=== PATIENT | male | born 1945 | race Caucasian/White ===

== ENCOUNTER 2016-06-20 11:07 | Emergency (ER) | payer MEDICARE ==
[2016-06-20 11:29] VITALS: BP 160/84
--- NOTE | 2016-06-20 11:33 | EDM.PDOC ---
ED HPI GENERAL MEDICAL PROBLEM - General Chief Complaint: General Stated Complaint: HYPERGLYCEMIA Time Seen by Provider: 06/20/16 11:23 Source of Information: Reports: Patient History Limitations: Reports: No limitations - History of Present Illness INITIAL COMMENTS - FREE TEXT/NARRATIVE: PT SENT TO ER FROM THE [facility] AND PRESENTS WITH BLOOD LAB VALUE OF GLUCOSE FOUND TO BE ELEVATED TO 480. PT STATES HE RAN OUT OF MEDICATION AND HAS NOT TAKEN IT IN 2 WEEKS. DENIES FEVER, CP, SOB, N/V/D, ABD PAIN, OR STEPHENSON. PT STATES HE FEELS FINE AND DOES NOT CHECK BG LEVEL DAILY. Onset: gradual Duration: Week(s): Severity: mild Improves with: Reports: None Worsens with: Reports: None Associated Symptoms: Reports: no other symptoms. Denies: chest pain, diaphoresis, fever/chills, headaches, nausea/vomiting, shortness of breath, syncope, weakness - Related Data Allergies Allergy/AdvReac Type Severity Reaction Status Date / Time No Known Drug Allergies Allergy Cannot Verified 06/20/16 11:26 Remember Home Meds: Home Meds Benazepril [Lotensin] 40 mg PO BEDTIME 06/20/16 [History] Simvastatin [Zocor] 20 mg PO BEDTIME 06/20/16 [History] amLODIPine [Norvasc] 10 mg PO DAILY 06/20/16 [History] glipiZIDE [Glipizide Xl] 20 mg PO DAILY 06/20/16 [History] metFORMIN [Glucophage] 1,000 mg PO BIDMEALS 06/20/16 [History] ED ROS GENERAL - Review of Systems Review Of Systems: ROS reveals no pertinent complaints other than HPI. Constitutional: Reports: no symptoms HEENT: Reports: No symptoms Respiratory: Reports: No Symptoms Cardiovascular: Reports: No symptoms Endocrine: Reports: no symptoms GI/Abdominal: Reports: No symptoms : Reports: no symptoms Musculoskeletal: Reports: no symptoms Skin: Reports: no symptoms Neurological: Reports: No Symptoms Psychiatric: Reports: No symptoms Hematologic/Lymphatic: Reports: no symptoms Immunologic: Reports: no symptoms ED EXAM, GENERAL - Physical Exam Exam: See Below Exam Limited By: No limitations General Appearance: alert, WD/WN, no apparent distress Eye Exam: bilateral eye: normal inspection Nose: normal inspection, normal mucosa, no blood Throat/Mouth: Normal inspection, Normal oropharynx, No airway compromise Head: atraumatic, normocephalic Neck: normal inspection, supple, non-tender Respiratory/Chest: no respiratory distress, lungs clear, normal breath sounds, no accessory muscle use, chest non-tender Cardiovascular: regular rate, rhythm, no murmur GI/Abdominal: normal bowel sounds, soft, non tender, no organomegaly, no distention, no abnormal bruit, no mass Back Exam: normal inspection, full range of motion. No: CVA tenderness (L), CVA tenderness (R) Extremities: normal inspection, no pedal edema Neurological: alert, oriented, normal cognition, no motor/sensory deficits Psychiatric: normal affect, normal mood Skin Exam: Warm, Dry, Intact, Normal color, No rash Lymphatic: no adenopathy Course - Vital Signs Last Recorded V/S: Last Vital Signs Temp 98.5 F 06/20/16 11:16 Pulse 101 H 06/20/16 11:16 Resp 18 06/20/16 11:16 BP 160/84 H 06/20/16 11:16 Pulse Ox 95 06/20/16 11:16 - Orders/Labs/Meds Orders: Active Orders 24 hr Category Date Time Status Blood Glucose Check, Bedside [RC] ONETIME Care 06/20/16 13:15 Active Sodium Chloride 0.9% [Syrex Flush] Med 06/20/16 11:44 Active 5 ml FLUSH Q8HR PRN Peripheral IV Insertion Adult [OM.PC] Routine Oth 06/20/16 11:44 Ordered Medication Orders Sodium Chloride (Syrex Flush) 5 ml FLUSH Q8HR PRN PRN Reason: Keep Vein Open Labs: Laboratory Tests 06/20/16 06/20/16 Range/Units 11:51 13:10 POC Glucose 370 H 307 H (74-106) mg/dl Meds: Medications Generic Name Dose Route Start Last Admin Trade Name Freq PRN Reason Stop Dose Admin Sodium Chloride 5 ml 06/20/16 11:44 Syrex Flush FLUSH Q8HR PRN Keep Vein Open Discontinued Medications Generic Name Dose Route Start Last Admin Trade Name Freq PRN Reason Stop Dose Admin Sodium Chloride 1,000 mls @ 999 mls/hr 06/20/16 11:44 06/20/16 12:15 Normal Saline IV 06/20/16 12:44 999 mls/hr .BOLUS ONE Administration Insulin Human Regular 6 unit 06/20/16 11:44 06/20/16 12:14 Novolin R SUBCUT 06/20/16 11:45 6 unit ONETIME ONE Administration Protocol - Re-Assessments/Exams Free Text/Narrative Re-Assessment/Exam: 06/20/16 13:21 PT AFEBRILE, NONTOXIC APPEARING, FEELS WELL, BG DECREASED. WILL RESTART CURRENT MEDICATIONS AND HAVE HIM F/U AT CLINIC SCHEDULED ON Saturday06/20/16 13:24 Departure - Departure Time of Disposition: 13:24 Disposition: Home, Self-Care 01 Condition: good Clinical Impression: Hyperglycemia Diabetes mellitus Qualifiers: Diabetes mellitus type: type 2 Diabetes mellitus complication status: without complication Instructions: Type 2 Diabetes Mellitus, Adult, Hyperglycemia, [id number] Forms: ED Department Discharge Additional Instructions: FOLLOW UP WITH PCP SCHEDULED ON SATURDAY - My Orders Last 24 Hours: My Active Orders 06/20/16 11:44 Sodium Chloride 0.9% [Syrex Flush] 5 ml FLUSH Q8HR PRN Peripheral IV Insertion Adult [OM.PC] Routine 06/20/16 13:15 Blood Glucose Check, Bedside [RC] ONETIME - Assessment/Plan Last 24 Hours: My Active Orders 06/20/16 11:44 Sodium Chloride 0.9% [Syrex Flush] 5 ml FLUSH Q8HR PRN Peripheral IV Insertion Adult [OM.PC] Routine 06/20/16 13:15 Blood Glucose Check, Bedside [RC] ONETIME Assessment:: HYPERGLYCEMIA Plan: WILL F/U WITH PCP SCHEDULED ON SATURDAY
[2016-06-20] MEDS ORDERED: Insulin Regular, Human 100 Units/ML 10 ML Vial SUBCUT ONE (11:44)
[2016-06-20] MEDS ORDERED: Sodium Chloride 0.9% 1,000 ML IV ONE (11:44)
[2016-06-20] MEDS ORDERED: Sodium Chloride 0.9% 5 ML Syringe FLUSH PRN (11:44)
== END 2016-06-20 13:45 | disposition home or self-care (01) ==
LOC: KA.ED 11:07
DX: E11.65 Type 2 diabetes mellitus with hyperglycemia (principal); Z79.84 Long term (current) use of oral hypoglycemic drugs; Z79.899 Other long term (current) drug therapy
CPT/HCPCS: 82962; 96360; 96372; 99283; J1817; J7030; 99284

== ENCOUNTER 2020-02-22 11:55 | Inpatient (IN) | payer MEDICARE, OTHER ==
[2020-02-22] MEDS ORDERED: Sodium Chloride 0.9% 1,000 ML ONE (12:42)
[2020-02-22] MEDS ORDERED: Sodium Chloride 0.9% 1,000 ML IV ONE ×3 (13:01→21:14)
[2020-02-22] MEDS ORDERED: 50% Dextrose in Water 50 ML Syringe IV PRN ×3 (13:03→23:29)
[2020-02-22] MEDS ORDERED: Glucagon,Human Recombinant 1 MG Vial IM PRN ×3 (13:03→23:29)
[2020-02-22] MEDS ORDERED: Insulin Aspart 100 Units/ML 3 ML Pen SUBCUT ONE ×2 (13:03→14:20)
[2020-02-22] MEDS ORDERED: Ondansetron 4 MG/2 ML SDV IVPUSH ONE (14:32)
[2020-02-22] MEDS ORDERED: Ondansetron 4 MG/2 ML SDV ONE (14:33)
--- NOTE | 2020-02-22 14:41 | EDM.PDOC ---
ED HPI GENERAL MEDICAL PROBLEM - General Chief Complaint: Gastrointestinal Problem Stated Complaint: WEAK; Time Seen by Provider: 02/22/20 13:50 Source of Information: Reports: Patient History Limitations: Reports: No Limitations - History of Present Illness INITIAL COMMENTS - FREE TEXT/NARRATIVE: Patient presents with nausea and vomiting for 5 days. He can't keep anything down and thinks it is from high glucose. He has had this in the past. He takes metformin and glipizide but hasn't had glipizide for nearly 3 weeks since he couldn't get it refilled. He has been very thirsty and urinating more than usual but can't keep water down. - Related Data Allergies Allergy/AdvReac Type Severity Reaction Status Date / Time No Known Drug Allergies Allergy Cannot Verified 02/22/20 12:19 Remember Home Meds: Home Meds Benazepril [Lotensin] 40 mg PO BEDTIME 06/20/16 [History] Simvastatin [Zocor] 20 mg PO BEDTIME 06/20/16 [History] amLODIPine [Norvasc] 10 mg PO DAILY 06/20/16 [History] glipiZIDE [Glipizide Xl] 20 mg PO DAILY 06/20/16 [History] metFORMIN [Glucophage] 1,000 mg PO BIDMEALS 06/20/16 [History] Aspirin [Aspirin EC] 81 mg PO DAILY 02/22/20 [History] Past Medical History HEENT History: Reports: None Cardiovascular History: Reports: High Cholesterol, Hypertension Respiratory History: Reports: None Gastrointestinal History: Reports: Colon Polyp Musculoskeletal History: Reports: Fracture Neurological History: Reports: None Endocrine/Metabolic History: Reports: Diabetes, Type II, Obesity/BMI 30+ - Infectious Disease History Infectious Disease History: Reports: Chicken Pox, Mumps - Past Surgical History HEENT Surgical History: Reports: None Cardiovascular Surgical History: Reports: None Respiratory Surgical History: Reports: None GI Surgical History: Reports: Appendectomy, Colonoscopy, Polypectomy, Other (See Below) Other GI Surgeries/Procedures: scrotal hernia Endocrine Surgical History: Reports: None Neurological Surgical History: Reports: None Musculoskeletal Surgical History: Reports: None Dermatological Surgical History: Reports: None Social & Family History - Family History Family Medical History: No Pertinent Family History - Tobacco Use Tobacco Use Status *Q: Current Every Day Tobacco User Years of Tobacco use: 30 Packs/Tins Daily: 1 Used Tobacco, but Quit: No Second Hand Smoke Exposure: No - Caffeine Use Caffeine Use: Reports: Coffee - Recreational Drug Use Recreational Drug Use: No ED ROS GENERAL - Review of Systems Review Of Systems: See Below Constitutional: Reports: Weakness. Denies: Fever, Decreased Appetite HEENT: Reports: No Symptoms Respiratory: Denies: Shortness of Breath, Cough Cardiovascular: Denies: Chest Pain, Lightheadedness, Syncope GI/Abdominal: Reports: Abdominal Pain (a little in LUQ for two weeks), Nausea, Vomiting. Denies: Constipation, Diarrhea, Decreased Appetite : Denies: Dysuria, Flank Pain Musculoskeletal: Denies: Neck Pain, Shoulder Pain, Arm Pain, Back Pain, Hand Pain Skin: Denies: Cyanosis, Jaundice, Mottled, Pallor, Diaphoresis Neurological: Denies: Confusion, Dizziness, Headache, Seizure, Syncope, Trouble Speaking, Difficulty Walking Psychiatric: Denies: Agitation, Anxiety ED EXAM GENERAL NO PERIP PULSE - Physical Exam Exam: See Below Exam Limited By: No Limitations General Appearance: Alert, WD/WN, No Apparent Distress Eye Exam: Bilateral Eye: EOMI, Normal Inspection, PERRL Ears: Normal External Exam, Hearing Grossly Normal Nose: Normal Inspection, No Blood Throat/Mouth: Normal Inspection, Normal Lips (dry), Normal Voice, No Airway Compromise Head: Atraumatic, Normocephalic Neck: Normal Inspection, Full Range of Motion Respiratory/Chest: No Respiratory Distress, Lungs Clear, Normal Breath Sounds, No Accessory Muscle Use, Chest Non-Tender Cardiovascular: Regular Rate, Rhythm, No Murmur GI/Abdominal: Normal Bowel Sounds, Soft, No Organomegaly, Tender (mildly tender to palpation in LUQ with mild distension but no organomegaly evident). No: Guarding, Rigid Back Exam: Normal Inspection, Full Range of Motion. No: CVA Tenderness (L), CVA Tenderness (R) Extremities: Normal Inspection, Normal Range of Motion Neurological: Alert, Oriented, Normal Cognition, No Motor/Sensory Deficits Psychiatric: Normal Affect, Normal Mood Skin Exam: Warm, Dry, Intact, Normal Color, No Rash Course - Vital Signs Last Recorded V/S: Last Vital Signs Temp 97.2 F 02/22/20 13:55 Pulse 91 02/22/20 13:55 Resp 16 02/22/20 13:55 BP 93/56 L 02/22/20 13:55 Pulse Ox 96 02/22/20 14:26 - Orders/Labs/Meds Orders: Active Orders 24 hr Category Date Time Status CBC WITH AUTO DIFF [HEME] Stat Lab 02/22/20 12:48 Ordered COMPREHENSIVE METABOLIC PN,CMP [CHEM] Stat Lab 02/22/20 12:48 Ordered LACTIC ACID [CHEM] Stat Lab 02/22/20 12:48 Ordered UA W/JESS RFLX IF INDICATED [URIN] Stat Lab 02/22/20 12:49 Ordered Dextrose 50% in Water Med 02/22/20 13:03 Active 50 ml IV ASDIRECTED PRN Dextrose 50% in Water Med 02/22/20 14:20 Ordered 50 ml IV ASDIRECTED PRN Glucagon,Human Recombinant [GlucaGen] Med 02/22/20 13:03 Active 1 mg IM ASDIRECTED PRN Glucagon,Human Recombinant [GlucaGen] Med 02/22/20 14:20 Ordered 1 mg IM ASDIRECTED PRN Medication Orders Dextrose/Water (Dextrose 50% In Water) 50 ml IV ASDIRECTED PRN PRN Reason: Hypoglycemia Dextrose/Water (Dextrose 50% In Water) 50 ml IV ASDIRECTED PRN PRN Reason: Hypoglycemia Glucagon (Glucagen) 1 mg IM ASDIRECTED PRN PRN Reason: Hypoglycemia Glucagon (Glucagen) 1 mg IM ASDIRECTED PRN PRN Reason: Hypoglycemia Meds: Medications Generic Name Dose Route Start Last Admin Trade Name Freq PRN Reason Stop Dose Admin Dextrose/Water 50 ml 02/22/20 13:03 Dextrose 50% In Water IV ASDIRECTED PRN Hypoglycemia Dextrose/Water 50 ml 02/22/20 14:20 Dextrose 50% In Water IV ASDIRECTED PRN Hypoglycemia Glucagon 1 mg 02/22/20 13:03 Glucagen IM ASDIRECTED PRN Hypoglycemia Glucagon 1 mg 02/22/20 14:20 Glucagen IM ASDIRECTED PRN Hypoglycemia Discontinued Medications Generic Name Dose Route Start Last Admin Trade Name Freq PRN Reason Stop Dose Admin Sodium Chloride Confirm 02/22/20 12:42 02/22/20 13:28 Normal Saline Administered 02/22/20 12:43 Not Given Dose 1,000 mls @ as directed .ROUTE .STK-MED ONE Sodium Chloride 1,000 mls @ 999 mls/hr 02/22/20 13:01 02/22/20 13:10 Normal Saline IV 02/22/20 14:01 999 mls/hr .BOLUS ONE Administration Insulin Aspart 5 unit 02/22/20 13:03 02/22/20 13:11 Novolog SUBCUT 02/22/20 13:04 5 unit ONETIME ONE Administration Insulin Aspart 5 unit 02/22/20 14:20 02/22/20 14:23 Novolog SUBCUT 02/22/20 14:21 5 unit ONETIME ONE Administration Ondansetron HCl 8 mg 02/22/20 14:32 Zofran IVPUSH 02/22/20 14:33 ONETIME ONE Ondansetron HCl Confirm 02/22/20 14:33 Zofran Administered 02/22/20 14:34 Dose 8 mg .ROUTE .[facility] ONE - Re-Assessments/Exams Free Text/Narrative Re-Assessment/Exam: 02/22/20 16:01 WBC is 18 with 14.8 ANC. Glucose is >500 bedside. A liter of NS and 5 units of Novolog given. 40 minutes later POC glucose is still >500. BMP glucose is 867 at one hour so I discussed with Dr. Ortiz who advised another 5 units of Novolog. Still waiting on UA results. 02/22/20 16:18 Nausea is better after Zofran 8 mg IV. He drank 4 oz of water and kept it down. I discussed case with DR. Ortiz and will admit here. Discussed findings and treatment plan with patient who agrees. Pt stable. 02/22/20 17:16 CXR clear. Patient stated to nurse that he wishes to be DNR/DNI although nothing formal has been set up yet. 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, Diabetes 1.5, managed as type 2 Hypotension Qualifiers: Hypotension type: unspecified hypotension type Qualified Code(s): I95.9 - Hypotension, unspecified Nausea & vomiting Qualifiers: Vomiting type: unspecified Vomiting Intractability: non-intractable Qualified Code(s): R11.2 - Nausea with vomiting, unspecified - Discharge Information Referrals: Jenni Bautista PA-C [Primary Care Provider] - Sepsis Event Note (ED) - Evaluation Sepsis Screening Result: No Definite Risk - Focused Exam Vital Signs: Vital Signs Temp Pulse Resp BP Pulse Ox 02/22/20 14:26 96 02/22/20 14:00 100 02/22/20 13:55 97.2 F 91 16 93/56 L 99 02/22/20 13:18 97.3 F 96 18 109/51 L 96 02/22/20 13:05 86 L 02/22/20 12:30 97.4 F 105 H 18 93/58 L 91 L 02/22/20 12:20 97.3 F 117 H 18 75/52 L 95 - My Orders Last 24 Hours: My Active Orders 02/22/20 12:48 CBC WITH AUTO DIFF [HEME] Stat COMPREHENSIVE METABOLIC PN,CMP [CHEM] Stat LACTIC ACID [CHEM] Stat 02/22/20 12:49 UA W/JESS RFLX IF INDICATED [URIN] Stat 02/22/20 13:03 Dextrose 50% in Water 50 ml IV ASDIRECTED PRN Glucagon,Human Recombinant [GlucaGen] 1 mg IM ASDIRECTED PRN 02/22/20 14:20 Dextrose 50% in Water 50 ml IV ASDIRECTED PRN Glucagon,Human Recombinant [GlucaGen] 1 mg IM ASDIRECTED PRN - Assessment/Plan Last 24 Hours: My Active Orders 02/22/20 12:48 CBC WITH AUTO DIFF [HEME] Stat COMPREHENSIVE METABOLIC PN,CMP [CHEM] Stat LACTIC ACID [CHEM] Stat 02/22/20 12:49 UA W/JESS RFLX IF INDICATED [URIN] Stat 02/22/20 13:03 Dextrose 50% in Water 50 ml IV ASDIRECTED PRN Glucagon,Human Recombinant [GlucaGen] 1 mg IM ASDIRECTED PRN 02/22/20 14:20 Dextrose 50% in Water 50 ml IV ASDIRECTED PRN Glucagon,Human Recombinant [GlucaGen] 1 mg IM ASDIRECTED PRN
[2020-02-22] MEDS ORDERED: Azithromycin 500 MG in Sodium Chloride 0.9% 250 ML IV SCH (16:00)
[2020-02-22] MEDS ORDERED: cefTRIAXone 1 GM Vial IVPUSH SCH (16:00)
[2020-02-22] MEDS ORDERED: cefTRIAXone 1 GM Vial ONE (16:06)
--- NOTE | 2020-02-22 17:15 | CR ---
[id number] RAD/RAD Chest PA And Lateral EXAM: FRONTAL AND LATERAL CHEST INDICATION: LEUKOCYTOSIS. COMPARISON: None. DISCUSSION: The heart and lungs are normal in appearance. Mild height loss and scattered thoracic vertebral bodies. IMPRESSION: 1. No acute findings. Garret Lovell MD 02/22/20 [id number] Thank you for allowing us to participate in the care of your patient.
[2020-02-22] MEDS ORDERED: Sodium Chloride 0.9% 1,000 ML IV SCH (18:00)
[2020-02-22] MEDS ORDERED: Insulin Regular, Human 100 Units/ML 10 ML Vial IVPUSH ONE (18:30)
[2020-02-22] MEDS ORDERED: HYDROmorphone 1 MG/ML Syringe IVPUSH PRN (20:03)
[2020-02-22] MEDS: Ondansetron 4 MG/2 ML SDV IVPUSH PRN (20:36)
[2020-02-22] MEDS ORDERED: Enoxaparin 40 MG/0.4 ML Syringe SUBCUT SCH (21:00)
[2020-02-22] MEDS: Simvastatin 20 MG Tab PO SCH (21:45)
[2020-02-22 22:25] LABS: ANION GAP 17.6 mmol/L (5-15)
[2020-02-22] MEDS: Sodium Chloride 0.45% 1,000 ML IV SCH (23:51)
[2020-02-23] MEDS: Ondansetron 4 MG/2 ML SDV IVPUSH PRN ×3 (02:10→16:49)
[2020-02-23] MEDS: Sodium Chloride 0.45% 1,000 ML IV SCH ×5 (03:55→23:22)
[2020-02-23] MEDS: Insulin Aspart 100 Units/ML 3 ML Pen SUBCUT SCH ×5 (08:00→22:00)
[2020-02-23] MEDS: Aspirin 81 MG Tab.EC PO SCH (08:06)
[2020-02-23] MEDS ORDERED: 50% Dextrose in Water 50 ML Syringe IV PRN (09:13)
[2020-02-23] MEDS ORDERED: Glucagon,Human Recombinant 1 MG Vial IM PRN (09:13)
--- NOTE | 2020-02-23 09:50 | PCM.PN ---
- General Info Date of Service: 02/23/20 Admission Dx/Problem (Free Text): Diabetic emergency, hyperglycemia. - Review of Systems Systems Review Comment:: Jesús is evaluated on inpatient rounds today. He presented to the ER on 02/21 with inability to keep anything down x 4 days. He has a hx of DM, HTN, Hyperlipidemia and states he had been out of his glipizide XL for nearly 3 weeks as it was not renewed due to being non-compliant with labs. He has seen my colleague Jenni Bautista PA-C, twice in the last 2 years. He states more recently he had been going to the [facility] in [place]. He reports he only checks his BG's maybe once per week and it is usually 160-170's when he checks. He is not sure when his last A1C was. We have record of an A1C from May of 2019 that was 13.3. It is unclear if any medication changes were made when that result was obtained. His current diabetic regimen is metformin 1,000 mg PO BID as well as the glipizide XL 10 mg, 2 tablets BID. As noted, he had been off the glipizide for at least 3 weeks. He states he has been excessively thirsty and urinating nearly every hour. He has had significant vomiting. No fevers or other ill symptoms. Of note, his did test positive for COVID 3 weeks ago per report. He denies any COVID type symptoms. Pertinent ER labs include BG 867, BUN 61, Creatinine 2.59 (no hx of renal insufficiency), potassium 5.4, Na 143, Cl 98, CO2 22, Lactate 3.7, WBC 18 with no left shift, afebrile. CXR clear, UA with no evidence of infection. He was hypotensive upon arrival. He was given 10 units of Novolog in the ER and 1 L of NS and decision was made to admit with an insulin drip and q 1 hour accuchecks. He had repeat labs last evening with sodium of 150, chloride 112, BUN 74, Cr 1.99, glucose 415, lactate 2.1, K+ 4.8. He received an additional 2 L boluses of NS and then had NS infusing at 250 mL per hour, this was changed at 11:00PM on 02/21 to 0.45% NS due to elevated sodium and chloride levels. Insulin drip was stopped when his BG got down to 247 and he has been treated with sliding sca le insulin. He states he has only urinated twice since coming in. He notes overall he is feeling much better than he was when he came in. Nausea has subsided with zofran. He has been afebrile. Antihypertensive medications have been held due to relatively low blood pressure although better than initial presentation. He is in a negative pressure room as we have been unable to test him for COVID. Labs from today show an improvement in his WBC to 14, glucose 387, BUN 65, Creatinine 1.88, sodium 147, chloride 113, CO2 19, K+ elevated at 6.1 although the specimen was hemolyzed. - Patient Data Vitals - Most Recent: Last Vital Signs Temp 98.9 F 02/23/20 05:58 Pulse 98 02/23/20 05:58 Resp 18 02/23/20 05:58 BP 103/43 L 02/23/20 05:58 Pulse Ox 95 02/23/20 05:58 Weight - Most Recent: 175 lb I&O - Last 24 Hours: Intake & Output 02/22/20 02/23/20 02/23/20 22:59 06:59 14:59 Intake Total 1992 1600 Output Total 450 Balance 1992 1150 Lab Results Last 24 Hours: Laboratory Results - last 24 hr 02/22/20 02/22/20 02/22/20 Range/Units 12:30 13:47 17:16 Sodium (136-145) mmol/L Potassium (3.3-5.3) mmol/L Chloride (98-115) mmol/L Carbon Dioxide (21.0-32.0) mmol/L Anion Gap (5-15) mmol/L BUN (6-25) mg/dL Creatinine (0.51-1.17) mg/dL Est Cr Clr Drug Dosing mL/min Estimated GFR (MDRD) mL/min Glucose (75 - 99) mg/dL POC Glucose > 500 H* > 500 H* > 500 H* (74-100) mg/dL Lactic Acid (0.4-2.0) mmol/L Calcium (8.7-10.3) mg/dL Magnesium (1.8-2.4) mg/dL Lipase (73-393) U/L 02/22/20 02/22/20 02/22/20 Range/Units 21:50 21:50 21:57 Sodium 150 H D (136-145) mmol/L Potassium 4.8 (3.3-5.3) mmol/L Chloride 112 (98-115) mmol/L Carbon Dioxide 25.2 (21.0-32.0) mmol/L Anion Gap 17.6 H (5-15) mmol/L BUN 74 H* D (6-25) mg/dL Creatinine 1.99 H (0.51-1.17) mg/dL Est Cr Clr Drug Dosing 30.91 mL/min Estimated GFR (MDRD) 33 mL/min Glucose 415 H (75 - 99) mg/dL POC Glucose 356 H (74-100) mg/dL Lactic Acid 2.1 H (0.4-2.0) mmol/L Calcium 9.0 (8.7-10.3) mg/dL Magnesium 2.6 H (1.8-2.4) mg/dL Lipase 92 (73-393) U/L 02/22/20 02/22/20 02/23/20 Range/Units 22:54 23:59 00:44 Sodium (136-145) mmol/L Potassium (3.3-5.3) mmol/L Chloride (98-115) mmol/L Carbon Dioxide (21.0-32.0) mmol/L Anion Gap (5-15) mmol/L BUN (6-25) mg/dL Creatinine (0.51-1.17) mg/dL Est Cr Clr Drug Dosing mL/min Estimated GFR (MDRD) mL/min Glucose (75 - 99) mg/dL POC Glucose 375 H 285 H 307 H (74-100) mg/dL Lactic Acid (0.4-2.0) mmol/L Calcium (8.7-10.3) mg/dL Magnesium (1.8-2.4) mg/dL Lipase (73-393) U/L Med Orders - Current: Current Medications Aspirin (Halfprin) 81 mg PO DAILY [facility] Last Admin: 02/23/20 08:06 Dose: 81 mg Documented by: Dextrose/Water (Dextrose 50% In Water) 50 ml IV ASDIRECTED PRN PRN Reason: Hypoglycemia Dextrose/Water (Dextrose 50% In Water) 50 ml IV ASDIRECTED PRN PRN Reason: Hypoglycemia Enoxaparin Sodium (Lovenox) 30 mg SUBCUT BEDTIME [facility] Glucagon (Glucagen) 1 mg IM ASDIRECTED PRN PRN Reason: Hypoglycemia Glucagon (Glucagen) 1 mg IM ASDIRECTED PRN PRN Reason: Hypoglycemia Hydromorphone HCl (Dilaudid) 0.5 mg IVPUSH Q4H PRN PRN Reason: Pain Sodium Chloride (Sodium Chloride 0.45%) 1,000 mls @ 250 mls/hr IV ASDIRECTED [facility] Last Admin: 02/23/20 03:55 Dose: 250 mls/hr Documented by: Insulin Aspart (Novolog) 0 unit SUBCUT WITHMEALSANDBED [facility]; Protocol Last Admin: 02/23/20 08:00 Dose: 12 units Documented by: Insulin Glargine (Lantus Solostar) 10 units SUBCUT DAILY [facility] Ondansetron HCl (Zofran) 4 mg IVPUSH Q4H PRN PRN Reason: Nausea/Vomiting Last Admin: 02/23/20 02:10 Dose: 4 mg Documented by: Simvastatin (Zocor) 20 mg PO BEDTIME [facility] Last Admin: 02/22/20 21:45 Dose: Not Given Documented by: Discontinued Medications Ceftriaxone Sodium (Rocephin) 1 gm IVPUSH Q24H [facility] Last Admin: 02/22/20 16:55 Dose: Not Given Documented by: Ceftriaxone Sodium (Rocephin) Confirm Administered Dose 1 gm .ROUTE .STK-MED ONE Stop: 02/22/20 16:07 Last Admin: 02/22/20 16:54 Dose: Not Given Documented by: Dextrose/Water (Dextrose 50% In Water) 50 ml IV ASDIRECTED PRN PRN Reason: Hypoglycemia Dextrose/Water (Dextrose 50% In Water) 50 ml IV ASDIRECTED PRN PRN Reason: Hypoglycemia Enoxaparin Sodium (Lovenox) 40 mg SUBCUT BEDTIME [facility] Stop: 02/22/20 21:01 Last Admin: 02/22/20 23:02 Dose: 40 mg Documented by: Glucagon (Glucagen) 1 mg IM ASDIRECTED PRN PRN Reason: Hypoglycemia Glucagon (Glucagen) 1 mg IM ASDIRECTED PRN PRN Reason: Hypoglycemia Sodium Chloride (Normal Saline) Confirm Administered Dose 1,000 mls @ as directed .ROUTE .STK-MED ONE Stop: 02/22/20 12:43 Last Admin: 02/22/20 13:28 Dose: Not Given Documented by: Sodium Chloride (Normal Saline) 1,000 mls @ 999 mls/hr IV .BOLUS ONE Stop: 02/22/20 14:01 Last Admin: 02/22/20 13:10 Dose: 999 mls/hr Documented by: Sodium Chloride (Normal Saline) 1,000 mls @ 250 mls/hr IV .BOLUS ONE Stop: 02/22/20 20:13 Last Infusion: 02/22/20 18:00 Dose: 999 mls/hr Documented by: Sodium Chloride (Normal Saline) 1,000 mls @ 250 mls/hr IV ASDIRECTED [facility] Last Admin: 02/22/20 19:45 Dose: 250 mls/hr Documented by: Insulin Human Regular 100 unit (/ Sodium Chloride) 100 mls @ 7.938 mls/hr IV TITRATE [facility]; Protocol Last Titration: 02/22/20 21:20 Dose: 0.07 units/kg/hr, 5.9 mls/hr Documented by: Sodium Chloride (Normal Saline) 1,000 mls @ 999 mls/hr IV .BOLUS ONE Stop: 02/22/20 22:14 Last Admin: 02/22/20 20:40 Dose: 999 mls/hr Documented by: Insulin Aspart (Novolog) 5 unit SUBCUT ONETIME ONE Stop: 02/22/20 13:04 Last Admin: 02/22/20 13:11 Dose: 5 unit Documented by: Insulin Aspart (Novolog) 5 unit SUBCUT ONETIME ONE Stop: 02/22/20 14:21 Last Admin: 02/22/20 14:23 Dose: 5 unit Documented by: Insulin Human Regular (Humulin R) 7.9 unit IVPUSH ONETIME ONE Stop: 02/22/20 18:31 Last Admin: 02/22/20 18:30 Dose: 7.9 units Documented by: Ondansetron HCl (Zofran) 8 mg IVPUSH ONETIME ONE Stop: 02/22/20 14:33 Last Admin: 02/22/20 14:38 Dose: 8 mg Documented by: Ondansetron HCl (Zofran) Confirm Administered Dose 8 mg .ROUTE .STK-MED ONE Stop: 02/22/20 14:34 Last Admin: 02/22/20 14:38 Dose: Not Given Documented by: - Exam Quality Assessment: Supplemental Oxygen General: Alert, Oriented, Cooperative, No Acute Distress Lungs: Clear to Auscultation, Normal Respiratory Effort Cardiovascular: Regular Rate, Regular Rhythm, No Murmurs GI/Abdominal Exam: Normal Bowel Sounds Extremities: No Pedal Edema Sepsis Event Note - Evaluation Sepsis Screening Result: Severe Sepsis Risk - Focused Exam Vital Signs: Vital Signs Temp Pulse Resp BP Pulse Ox 02/23/20 05:58 98.9 F 98 18 103/43 L 95 02/23/20 03:00 91 102/57 L 95 02/23/20 02:15 120/57 L 02/23/20 01:50 98.4 F 99 18 97/57 L 94 L 02/23/20 00:45 99 103/56 L 95 02/23/20 00:00 96 18 97/57 L 94 L 02/22/20 23:00 96 18 105/55 L 92 L 02/22/20 22:00 97.8 F 92 18 106/55 L 96 - Problem List Review Problem List Initiated/Reviewed/Updated: Yes - My Orders Last 24 Hours: My Active Orders 02/22/20 17:50 Resuscitation Status Routine 02/22/20 17:51 Oxygen Therapy [RC] .PRN VTE/DVT Education [RC] DAILY Vital Signs [RC] 03,07,11,15,19,23 02/22/20 17:56 Accu Check [Blood Glucose Check, Bedside] [RC] QIDACANDBED 02/22/20 Dinner [employer] Diet [DIET] 02/22/20 20:00 BLOOD GAS ARTERIAL [BG] Timed 02/22/20 20:03 HYDROmorphone [Dilaudid] 0.5 mg IVPUSH Q4H PRN Ondansetron [Zofran] 4 mg IVPUSH Q4H PRN 02/22/20 21:00 Enoxaparin [Lovenox] 30 mg SUBCUT BEDTIME Simvastatin [Zocor] 20 mg PO BEDTIME 02/22/20 23:15 Sodium Chloride 0.45% 1,000 ml IV ASDIRECTED 02/22/20 23:29 Dextrose 50% in Water 50 ml IV ASDIRECTED PRN Glucagon,Human Recombinant [GlucaGen] 1 mg IM ASDIRECTED PRN 02/23/20 05:11 BMP [BASIC METABOLIC PANEL,BMP] [CHEM] AM CBC W/O DIFF,HEMOGRAM [HEME] AM LACTIC ACID [CHEM] AM PROCALCITONIN [REF] Routine 02/23/20 08:00 Insulin Aspart [NovoLOG] See Protocol SUBCUT WITHMEALSANDBED 02/23/20 09:00 Aspirin [Halfprin] 81 mg PO DAILY 02/23/20 09:13 Dextrose 50% in Water 50 ml IV ASDIRECTED PRN Glucagon,Human Recombinant [GlucaGen] 1 mg IM ASDIRECTED PRN 02/23/20 09:15 Insulin Glarg,Human.Rec.Analog [LantUS Solostar] 10 units SUBCUT DAILY 02/23/20 13:00 BMP [BASIC METABOLIC PANEL,BMP] [CHEM] Timed 02/24/20 05:11 BMP [BASIC METABOLIC PANEL,BMP] [CHEM] AM CBC W/O DIFF,HEMOGRAM [HEME] AM 02/25/20 05:11 BMP [BASIC METABOLIC PANEL,BMP] [CHEM] AM CBC W/O DIFF,HEMOGRAM [HEME] AM 02/26/20 05:11 BMP [BASIC METABOLIC PANEL,BMP] [CHEM] AM CBC W/O DIFF,HEMOGRAM [HEME] AM 02/27/20 05:11 BMP [BASIC METABOLIC PANEL,BMP] [CHEM] AM CBC W/O DIFF,HEMOGRAM [HEME] AM - Assessment Assessment:: Diabetic emergency, hyperglycemia. - Continue SSI - Start Lantus 10 units subcut daily - Will get A1C - Hold metformin and glipizide for now - Repeat BMP at 1300 when lab is available - Continue 0.45% NS at 250 mL per hour Hypernatremia - Likely iatrogenic due to large volume resuscitation, changed fluids from NS to 0.45% NS on 02/21 Pseudohyperkalemia - Specimen hemolyzed, was normal on labs last evening, repeat BMP at 1300 on 02/22 Hypotension - Improving - Continue to hold amlodipine and benazepril Acute renal insufficiency - Improving, secondary to dehydration due to hyperglycemia - Continue IVF's as noted above. Hyperlipidemia - Continue simvastatin Will get COVID testing when lab is available today, if negative can move out of negative pressure room. CODE STATUS: DNR/DNI DVT prophylaxis: Ambulation
[2020-02-23] MEDS: Insulin Glargine,Human Rec. Analog 100 Units/ML 3 ML Pen SUBCUT SCH (10:14)
[2020-02-23 13:59] LABS: ANION GAP 16.5 mmol/L (5-15); CHLORIDE,CL 112 mmol/L (98-115); SODIUM,NA 148 mmol/L (136-145)
[2020-02-23 14:38] LABS: HEMOGLOBIN A1C > 14.0 % (4.3-5.7)
[2020-02-23] MEDS ORDERED: Promethazine 25 MG in Sodium Chloride 0.9% 100 ML IV ONE (17:29)
[2020-02-23] MEDS: Simvastatin 20 MG Tab PO SCH (20:34)
[2020-02-23] MEDS: Enoxaparin 40 MG/0.4 ML Syringe SUBCUT SCH (20:39)
[2020-02-24] MEDS: Sodium Chloride 0.45% 1,000 ML IV SCH ×4 (03:28→21:05)
[2020-02-24] MEDS: Ondansetron 4 MG/2 ML SDV IVPUSH PRN ×2 (06:25→16:40)
[2020-02-24 08:13] LABS: ANION GAP 16.4 mmol/L (5-15); CHLORIDE,CL 109 mmol/L (98-115); SODIUM,NA 144 mmol/L (136-145)
--- NOTE | 2020-02-24 09:44 | PCM.PN ---
- General Info Date of Service: 02/24/20 Admission Dx/Problem (Free Text): Diabetic emergency, hyperglycemia. - Review of Systems Systems Review Comment:: Jesús is seen today on inpatient rounds. He continues to have emesis when he tries to eat and drink. He notes "I tried to eat a banana thinking that was smooth but it came up nearly as fast as it went down". He states he is passing little flatus, has had no BM since admission but does not feel constipated and denies abdominal pain to me today. He did get a dose of phenergan 25 mg IV last evening but didn't try to eat anything after that. He had a small emesis this AM after drinking some fresh ice water. He denies feeling nauseated, however. He states "nothing tastes good". COVID testing from 02/22 was negative. Of note, last evening (02/22) he had an unwitnessed fall. Reportedly he was trying to go to the bathroom and failed to move his IV pole with him and got as far as the tubing would allow and then was weak and "I slid to the floor". No injury. He denies hitting his head. His BP is improving, it is actually elevated today, he has been afebrile. Renal function is now nearly back to normal. - Patient Data Vitals - Most Recent: Last Vital Signs Temp 98.6 F 02/24/20 06:37 Pulse 91 02/24/20 06:37 Resp 16 02/24/20 06:37 BP 150/81 H 02/24/20 06:37 Pulse Ox 99 02/24/20 06:37 Weight - Most Recent: 175 lb I&O - Last 24 Hours: Intake & Output 02/23/20 02/24/20 02/24/20 22:59 06:59 14:59 Intake Total 3957 1906 Output Total 500 475 Balance 3457 1431 Lab Results Last 24 Hours: Laboratory Results - last 24 hr 02/23/20 02/23/20 02/23/20 Range/Units 03:03 05:10 07:59 WBC (5.00-10.00) 10^3/uL RBC (4.50-6.00) 10^6/uL Hgb (13.0-17.0) g/dL Hct (40.0-52.0) % MCV (82.0-92.0) fL MCH (27.0-31.0) pg MCHC (32.0-36.0) g/dL RDW (11.5-14.5) % Plt Count (150-400) 10^3/uL MPV (7.4-10.4) fL Sodium (136-145) mmol/L Potassium (3.3-5.3) mmol/L Chloride (98-115) mmol/L Carbon Dioxide (21.0-32.0) mmol/L Anion Gap (5-15) mmol/L BUN (6-25) mg/dL Creatinine (0.51-1.17) mg/dL Est Cr Clr Drug Dosing mL/min Estimated GFR (MDRD) mL/min Glucose (75 - 99) mg/dL POC Glucose 247 H 265 H 320 H (74-100) mg/dL Hemoglobin A1c (4.3-5.7) % Calcium (8.7-10.3) mg/dL SARS CoV-2 RNA Rapid YOUNG (NEGATIVE) 02/23/20 02/23/20 02/23/20 Range/Units 11:18 11:46 13:00 WBC (5.00-10.00) 10^3/uL RBC (4.50-6.00) 10^6/uL Hgb (13.0-17.0) g/dL Hct (40.0-52.0) % MCV (82.0-92.0) fL MCH (27.0-31.0) pg MCHC (32.0-36.0) g/dL RDW (11.5-14.5) % Plt Count (150-400) 10^3/uL MPV (7.4-10.4) fL Sodium 148 H (136-145) mmol/L Potassium 4.0 (3.3-5.3) mmol/L Chloride 112 (98-115) mmol/L Carbon Dioxide 23.5 (21.0-32.0) mmol/L Anion Gap 16.5 H (5-15) mmol/L BUN 62 H* (6-25) mg/dL Creatinine 1.22 H (0.51-1.17) mg/dL Est Cr Clr Drug Dosing 50.42 mL/min Estimated GFR (MDRD) 58 mL/min Glucose 273 H (75 - 99) mg/dL POC Glucose 237 H (74-100) mg/dL Hemoglobin A1c > 14.0 H (4.3-5.7) % Calcium 8.2 L (8.7-10.3) mg/dL SARS CoV-2 RNA Rapid YOUNG Negative (NEGATIVE) 02/23/20 02/23/20 02/24/20 Range/Units 17:53 20:29 07:40 WBC 13.70 H (5.00-10.00) 10^3/uL RBC 4.70 (4.50-6.00) 10^6/uL Hgb 14.0 (13.0-17.0) g/dL Hct 43.2 (40.0-52.0) % MCV 91.9 D (82.0-92.0) fL MCH 29.8 (27.0-31.0) pg MCHC 32.4 (32.0-36.0) g/dL RDW 11.9 (11.5-14.5) % Plt Count 202 (150-400) 10^3/uL MPV 10.5 H (7.4-10.4) fL Sodium (136-145) mmol/L Potassium (3.3-5.3) mmol/L Chloride (98-115) mmol/L Carbon Dioxide (21.0-32.0) mmol/L Anion Gap (5-15) mmol/L BUN (6-25) mg/dL Creatinine (0.51-1.17) mg/dL Est Cr Clr Drug Dosing mL/min Estimated GFR (MDRD) mL/min Glucose (75 - 99) mg/dL POC Glucose 241 H 203 H (74-100) mg/dL Hemoglobin A1c (4.3-5.7) % Calcium (8.7-10.3) mg/dL SARS CoV-2 RNA Rapid YOUNG (NEGATIVE) 02/24/20 02/24/20 Range/Units 07:40 07:41 WBC (5.00-10.00) 10^3/uL RBC (4.50-6.00) 10^6/uL Hgb (13.0-17.0) g/dL Hct (40.0-52.0) % MCV (82.0-92.0) fL MCH (27.0-31.0) pg MCHC (32.0-36.0) g/dL RDW (11.5-14.5) % Plt Count (150-400) 10^3/uL MPV (7.4-10.4) fL Sodium 144 (136-145) mmol/L Potassium 4.2 (3.3-5.3) mmol/L Chloride 109 (98-115) mmol/L Carbon Dioxide 22.8 (21.0-32.0) mmol/L Anion Gap 16.4 H (5-15) mmol/L BUN 37 H D (6-25) mg/dL Creatinine 0.89 (0.51-1.17) mg/dL Est Cr Clr Drug Dosing 69.11 mL/min Estimated GFR (MDRD) > 60 mL/min Glucose 245 H (75 - 99) mg/dL POC Glucose 212 H (74-100) mg/dL Hemoglobin A1c (4.3-5.7) % Calcium 7.5 L (8.7-10.3) mg/dL SARS CoV-2 RNA Rapid YOUNG (NEGATIVE) Med Orders - Current: Current Medications Aspirin (Halfprin) 81 mg PO DAILY [facility] Last Admin: 02/23/20 08:06 Dose: 81 mg Documented by: Benazepril HCl (Lotensin) 40 mg PO BEDTIME [facility] Dextrose/Water (Dextrose 50% In Water) 50 ml IV ASDIRECTED PRN PRN Reason: Hypoglycemia Dextrose/Water (Dextrose 50% In Water) 50 ml IV ASDIRECTED PRN PRN Reason: Hypoglycemia Diphenhydramine HCl (Benadryl) 25 mg PO Q6H PRN PRN Reason: Vomiting Enoxaparin Sodium (Lovenox) 40 mg SUBCUT BEDTIME [facility] Last Admin: 02/23/20 20:39 Dose: 40 mg Documented by: Glucagon (Glucagen) 1 mg IM ASDIRECTED PRN PRN Reason: Hypoglycemia Glucagon (Glucagen) 1 mg IM ASDIRECTED PRN PRN Reason: Hypoglycemia Hydromorphone HCl (Dilaudid) 0.5 mg IVPUSH Q4H PRN PRN Reason: Pain Sodium Chloride (Sodium Chloride 0.45%) 1,000 mls @ 125 mls/hr IV ASDIRECTED [facility] Last Admin: 02/24/20 03:28 Dose: 250 mls/hr Documented by: Insulin Aspart (Novolog) 0 unit SUBCUT WITHMEALSANDBED [facility]; Protocol Last Admin: 02/23/20 22:00 Dose: Not Given Documented by: Insulin Glargine (Lantus Solostar) 10 units SUBCUT DAILY [facility] Last Admin: 02/23/20 10:14 Dose: 10 units Documented by: Ondansetron HCl (Zofran) 4 mg IVPUSH Q4H PRN PRN Reason: Nausea/Vomiting Last Admin: 02/24/20 06:25 Dose: 4 mg Documented by: Simvastatin (Zocor) 20 mg PO BEDTIME [facility] Last Admin: 02/23/20 20:34 Dose: 20 mg Documented by: Discontinued Medications Ceftriaxone Sodium (Rocephin) 1 gm IVPUSH Q24H [facility] Last Admin: 02/22/20 16:55 Dose: Not Given Documented by: Ceftriaxone Sodium (Rocephin) Confirm Administered Dose 1 gm .ROUTE .STK-MED ONE Stop: 02/22/20 16:07 Last Admin: 02/22/20 16:54 Dose: Not Given Documented by: Dextrose/Water (Dextrose 50% In Water) 50 ml IV ASDIRECTED PRN PRN Reason: Hypoglycemia Dextrose/Water (Dextrose 50% In Water) 50 ml IV ASDIRECTED PRN PRN Reason: Hypoglycemia Enoxaparin Sodium (Lovenox) 40 mg SUBCUT BEDTIME [facility] Stop: 02/22/20 21:01 Last Admin: 02/22/20 23:02 Dose: 40 mg Documented by: Glucagon (Glucagen) 1 mg IM ASDIRECTED PRN PRN Reason: Hypoglycemia Glucagon (Glucagen) 1 mg IM ASDIRECTED PRN PRN Reason: Hypoglycemia Sodium Chloride (Normal Saline) Confirm Administered Dose 1,000 mls @ as directed .ROUTE .STK-MED ONE Stop: 02/22/20 12:43 Last Admin: 02/22/20 13:28 Dose: Not Given Documented by: Sodium Chloride (Normal Saline) 1,000 mls @ 999 mls/hr IV .BOLUS ONE Stop: 02/22/20 14:01 Last Admin: 02/22/20 13:10 Dose: 999 mls/hr Documented by: Sodium Chloride (Normal Saline) 1,000 mls @ 250 mls/hr IV .BOLUS ONE Stop: 02/22/20 20:13 Last Infusion: 02/22/20 18:00 Dose: 999 mls/hr Documented by: Sodium Chloride (Normal Saline) 1,000 mls @ 250 mls/hr IV ASDIRECTED [facility] Last Admin: 02/22/20 19:45 Dose: 250 mls/hr Documented by: Insulin Human Regular 100 unit (/ Sodium Chloride) 100 mls @ 7.938 mls/hr IV TITRATE [facility]; Protocol Last Titration: 02/22/20 21:20 Dose: 0.07 units/kg/hr, 5.9 mls/hr Documented by: Sodium Chloride (Normal Saline) 1,000 mls @ 999 mls/hr IV .BOLUS ONE Stop: 02/22/20 22:14 Last Admin: 02/22/20 20:40 Dose: 999 mls/hr Documented by: Promethazine HCl 25 mg/ Sodium (Chloride) 101 mls @ 400 mls/hr IV ONETIME ONE Stop: 02/23/20 17:44 Last Admin: 02/23/20 17:47 Dose: 400 mls/hr Documented by: Insulin Aspart (Novolog) 5 unit SUBCUT ONETIME ONE Stop: 02/22/20 13:04 Last Admin: 02/22/20 13:11 Dose: 5 unit Documented by: Insulin Aspart (Novolog) 5 unit SUBCUT ONETIME ONE Stop: 02/22/20 14:21 Last Admin: 02/22/20 14:23 Dose: 5 unit Documented by: Insulin Human Regular (Humulin R) 7.9 unit IVPUSH ONETIME ONE Stop: 02/22/20 18:31 Last Admin: 02/22/20 18:30 Dose: 7.9 units Documented by: Ondansetron HCl (Zofran) 8 mg IVPUSH ONETIME ONE Stop: 02/22/20 14:33 Last Admin: 02/22/20 14:38 Dose: 8 mg Documented by: Ondansetron HCl (Zofran) Confirm Administered Dose 8 mg .ROUTE .STK-MED ONE Stop: 02/22/20 14:34 Last Admin: 02/22/20 14:38 Dose: Not Given Documented by: - Exam General: Alert, Oriented, Cooperative, No Acute Distress Lungs: Clear to Auscultation, Normal Respiratory Effort Cardiovascular: Regular Rate, Regular Rhythm, No Murmurs GI/Abdominal Exam: Normal Bowel Sounds, Soft, Non-Tender, No Organomegaly Extremities: No Pedal Edema Sepsis Event Note - Evaluation Sepsis Screening Result: No Definite Risk - Focused Exam Vital Signs: Vital Signs Temp Pulse Resp BP Pulse Ox 02/24/20 06:37 98.6 F 91 16 150/81 H 99 02/24/20 03:00 98.5 F 87 16 148/73 H 94 L 02/23/20 22:56 97.0 F 57 L 20 130/80 95 - Problem List Review Problem List Initiated/Reviewed/Updated: Yes - My Orders Last 24 Hours: My Active Orders 02/23/20 09:00 Aspirin [Halfprin] 81 mg PO DAILY 02/23/20 09:13 Dextrose 50% in Water 50 ml IV ASDIRECTED PRN Glucagon,Human Recombinant [GlucaGen] 1 mg IM ASDIRECTED PRN 02/23/20 09:40 Insulin Glarg,Human.Rec.Analog [LantUS Solostar] 10 units SUBCUT DAILY 02/23/20 20:24 Up With Assistance [RC] 02/23/20 21:00 Enoxaparin [Lovenox] 40 mg SUBCUT BEDTIME 02/24/20 08:00 PT Evaluation and Treatment [CONS] Routine 02/24/20 09:34 Abdomen 2V AP Upright Decub [CR] Routine 02/24/20 09:35 diphenhydrAMINE [Benadryl] 25 mg PO Q6H PRN 02/24/20 21:00 Benazepril [Lotensin] 40 mg PO BEDTIME 02/25/20 05:11 BMP [BASIC METABOLIC PANEL,BMP] [CHEM] AM CBC WITH AUTO DIFF [HEME] AM 02/26/20 05:11 BMP [BASIC METABOLIC PANEL,BMP] [CHEM] AM CBC WITH AUTO DIFF [HEME] AM 02/27/20 05:11 BMP [BASIC METABOLIC PANEL,BMP] [CHEM] AM CBC WITH AUTO DIFF [HEME] AM - Assessment Assessment:: Diabetic emergency, hyperglycemia. - Continue SSI - Start Lantus 10 units subcut daily - Will get A1C - Hold metformin and glipizide for now - Repeat BMP at 1300 when lab is available - Decrease IVF's to 125 mL/hour Hypernatremia, resolved - Likely iatrogenic due to large volume resuscitation, changed fluids from NS to 0.45% NS on 11/30 Pseudohyperkalemia, resolved - Specimen hemolyzed, was normal on labs last evening, repeat BMP at 1300 on 02/22 Hypotension - Improving - Restart benazepril 40 mg PO at bedtime per home regimen Acute renal insufficiency - Improving, secondary to dehydration due to hyperglycemia - Decrease IVF's to 125 mL/hour Hyperlipidemia - Continue simvastatin Unwitnessed fall - PT consult to see if he needs swingbed - Bed alarm placed Vomiting - Zofran PRN - Will try benadryl 25 mg PO q 6 hours PRN - Flat/upright abdominal x-ray today COVID testing 02/22 negative CODE STATUS: DNR/DNI DVT prophylaxis: Ambulation
[2020-02-24] MEDS: Insulin Aspart 100 Units/ML 3 ML Pen SUBCUT SCH ×4 (10:19→21:19)
[2020-02-24] MEDS: Insulin Glargine,Human Rec. Analog 100 Units/ML 3 ML Pen SUBCUT SCH (10:22)
[2020-02-24] MEDS: Aspirin 81 MG Tab.EC PO SCH (10:30)
--- NOTE | 2020-02-24 10:30 | CR ---
[id number] RAD/RAD Abd Flat and Upright 2V EXAM: RAD Abd Flat and Upright 2V INDICATION: VOMITING. COMPARISON: None. DISCUSSION: Unobstructed bowel gas pattern. No radiographically evident pneumoperitoneum. Moderate amount of retained stool within the colon. IMPRESSION: Moderate amount retained stool within the colon. No evidence of obstruction. Peter Perez DO 02/24/20 1029 Thank you for allowing us to participate in the care of your patient.
[2020-02-24] MEDS: diphenhydrAMINE 25 MG Cap PO PRN ×2 (11:31→21:11)
[2020-02-24] MEDS: Simvastatin 20 MG Tab PO SCH (21:11)
[2020-02-24] MEDS: Enoxaparin 40 MG/0.4 ML Syringe SUBCUT SCH (21:15)
[2020-02-24] MEDS: Benazepril 10 MG Tab PO SCH (21:17)
[2020-02-25] MEDS: Ondansetron 4 MG/2 ML SDV IVPUSH PRN ×3 (00:06→18:43)
[2020-02-25] MEDS: diphenhydrAMINE 25 MG Cap PO PRN (04:15)
[2020-02-25] MEDS: Sodium Chloride 0.45% 1,000 ML IV SCH ×3 (05:18→21:30)
[2020-02-25] MEDS: Insulin Aspart 100 Units/ML 3 ML Pen SUBCUT SCH ×4 (08:00→21:03)
[2020-02-25 08:26] LABS: ANION GAP 18.3 mmol/L (5-15); CHLORIDE,CL 107 mmol/L (98-115); SODIUM,NA 140 mmol/L (136-145)
[2020-02-25] MEDS: Insulin Glargine,Human Rec. Analog 100 Units/ML 3 ML Pen SUBCUT SCH (09:03)
[2020-02-25] MEDS: Aspirin 81 MG Tab.EC PO SCH (09:04)
[2020-02-25] MEDS ORDERED: Magnesium Hydroxide 400 MG/5 ML Susp 30 ML Cup PO ONE (12:10)
[2020-02-25] MEDS: Metoclopramide 10 MG/2 ML SDV IVPUSH SCH ×2 (12:50→18:06)
--- NOTE | 2020-02-25 14:58 | PN ---
PATIENT NAME: YUDELKA LEMONS HISTORY OF PRESENT ILLNESS: This is 74-year-old male who was admitted through the emergency room on 02/22/2020. The patient had come in due to the fact that he had been vomiting for four days and had not had anything significant to eat. The patient has a history of diabetes mellitus, hypertension, hyperlipidemia. He ran out of his glipizide 3 weeks prior. The prescription renewal was denied due to the fact that the patient has been noncompliant with lab work. I have seen him at [facility] in [place] in the past. However, I have only seen him twice in this facility over the past two years. [facility] He reports he only checks his blood glucose perhaps once per week and it is usually 160s to 170s when he checks. The last A1c we have in his documented chart was from 05/2019 and it was 13.3. The patient states he was excessively thirsty and urinating nearly every hour too. He had had significant vomiting. No fevers or other ill symptoms. His did test positive for COVID three weeks ago per the patient report. The patient was given IV fluids. He was in a negative pressure room. He has had 2 negative rapid COVID tests. Significant lab data from today. His white blood cell count is slightly elevated at 11.62. BUN and creatinine have improved at 20 and 0.80. His glucose with his labs this morning was 194. He does have q.i.d. blood sugars as well, which have been ranging from 158 to 222. He does receive Lantus 10 units subcutaneously daily. He does have NovoLog on a sliding scale. This has been held last evening as well as this morning. He is improving. Hemodynamically he has been stable. He is on a daily aspirin regimen as well as enoxaparin for DVT prophylaxis. He was hypotensive when he came in, however, his blood pressures did improve and he was started back on benazepril 40 mg daily at bedtime. Metformin and glipizide have been on hold. He has been treated with Zofran. He did have an unwitnessed fall last night. He did not hit his head. He had a flat plate and upright abdominal x-ray yesterday which showed moderate amount of retained stool. The patient tried to have a bowel movement this morning, however, was unable to. There is some suspicion for gastroparesis. PHYSICAL EXAMINATION: VITAL SIGNS: Temp is 97.6, pulse 83, respirations 16, blood pressure 121/67, his oxygen saturation is 95% on room air. SKIN: Warm and dry to touch. He appears better hydrated than he did the last time I saw him two days ago. CARDIAC: Reveals S1, S2 to be normal. Rate and rhythm are regular. No murmur, click, or gallop is auscultated. LUNGS: Clear without rales, wheezes, or rhonchi. ABDOMEN: Soft, nontender. Bowel sounds are hypoactive. EXTREMITIES: There is no pedal edema. IMPRESSION: 1. Diabetic emergency with hyperglycemia. Glucose on admission was greater than 800. We will continue Lantus 10 units subcutaneously daily. He will continue sliding scale insulin as well. His metformin and glipizide are on hold for now. His labs do seem to be improving. We continue with IV hydration with half-normal saline. 2. Hypernatremia. His sodium is normal today at 140. 3. Pseudohypokalemia. This specimen was hemolyzed. His potassium now is 4.8. 4. Hypertension. This is improving. His benazepril has been restarted. He was on amlodipine before we have not restarted this as of yet. 5. Acute renal insufficiency, improving. This was most likely secondary to dehydration due to hyperglycemia. Continue IV fluids. 6. Hyperlipidemia, on statin. 7. Rapid COVID will be repeated today. The result was negative. He can move out of a negative pressure room. 8. DVT prophylaxis. He has been on enoxaparin. He was encouraged to ambulate. He has had a PT consult. He is quite deconditioned. He can be out walking in the hallways now. 9. Suspicion for gastroparesis. I did order metoclopramide also known as Reglan 10 mg IV q.i.d. I also ordered some milk of magnesia. Hopefully this will help. His gastrointestinal system functions better. He has been able to the eat, however, solid food usually comes back up. He did drink a glass of milk this morning which did stay down. He can continue with Zofran. 10.Code status is DNR/DNI. DISCHARGE PLAN: He may need to be in swing bed and we will have some physical therapy qualifications if need be. For him to be discharged to a home situation, he will have to be quite a bit stronger and be able to tolerate a regular diet/diabetic diet. I have communicated all my findings to Dr. Fozia Hardy, who has seen this patient in my absence and has been instrumental in the management of this patient. /[id number]/MODL
[2020-02-25] MEDS: Enoxaparin 40 MG/0.4 ML Syringe SUBCUT SCH (21:07)
[2020-02-25] MEDS: Simvastatin 20 MG Tab PO SCH (21:08)
[2020-02-25] MEDS: Benazepril 10 MG Tab PO SCH (21:08)
[2020-02-26] MEDS: Metoclopramide 10 MG/2 ML SDV IVPUSH SCH ×3 (00:25→11:40)
[2020-02-26] MEDS: Sodium Chloride 0.45% 1,000 ML IV SCH (05:49)
[2020-02-26] MEDS ORDERED: Bisacodyl 10 MG Supp RECTAL PRN (05:54)
[2020-02-26 06:20] VITALS: BP 147/67; PULSE 73
[2020-02-26] MEDS: Insulin Aspart 100 Units/ML 3 ML Pen SUBCUT SCH ×2 (07:40→11:38)
[2020-02-26] MEDS: Insulin Glargine,Human Rec. Analog 100 Units/ML 3 ML Pen SUBCUT SCH (08:19)
[2020-02-26] MEDS ORDERED: Promethazine 25 MG/ML SDV IM ONE (09:15)
[2020-02-26 09:28] LABS: ANION GAP 20.3 mmol/L (5-15); CHLORIDE,CL 105 mmol/L (98-115); SODIUM,NA 138 mmol/L (136-145)
[2020-02-26] MEDS: Aspirin 81 MG Tab.EC PO SCH (09:31)
[2020-02-26] MEDS ORDERED: Pantoprazole 40 MG Vial IVPUSH SCH (11:30)
--- NOTE | 2020-02-26 16:00 | DISCH ---
HISTORY OF PRESENT ILLNESS: This is 74-year-old male who was admitted to the emergency room on 02/22/2020. The patient had come in due to the fact that he had been vomiting for four days and had not had anything significant to eat. The patient has a history of diabetes mellitus, hypertension, hyperlipidemia. He ran out of his glipizide 3 weeks prior to his emergency room presentation. The patient had a blood sugar of over 800. The patient has been noncompliant with followup visits and lab work. The patient is co-managed by the [facility]. The patient states prior to his emergency room presentation that he was excessively thirsty and urinating nearly every hour also. He had significant vomiting. No fevers or other ill symptoms. His did test positive for COVID three weeks ago per the patient report. The patient has had two negative rapid COVID test. He does not fit a COVID type picture. The patient is being treated with IV fluids. He has been in a negative pressure room pending all negative COVID results. The patient was started on Lantus 10 units subcutaneously daily. He has been using NovoLog sliding scale. His blood glucose levels have improved considerably. He receives NovoLog 3-6 units depending on his blood sugar. If his blood sugar is 150 or below, he does not receive any. He has received 12 units of NovoLog insulin in the last 24 hours. Glucose readings have ranged between 148 to 197. The patient is hemodynamically stable. However, he is not able to eat. He did have a bowel movement today for the first time since his hospital stay began. We did start him on Reglan yesterday, but the patient is still not able to eat. He is afraid that he will become nauseated and throw up. We did entertain starting Phenergan, however, this has interaction with a prokinetic action of Reglan. The patient wants to go home by his birthday, which is [birth year], however, I did have a fairly lisa discussion with him that he would be unable to go home until he is eating adequately. Significant lab data from today. His white count is slightly elevated at 10.74. Chemistry panel shows a normal sodium of 138, potassium is normal at 4.0. BUN and creatinine are 15 and 0.71 respectively which are normal. He is on a daily aspirin regimen as well as enoxaparin for DVT prophylaxis. He was hypotensive when he came in, however, his blood pressures have improved and he was started back on benazepril 40 mg daily at bedtime. He is on amlodipine at home, however, this has not been restarted as of yet. Metformin and glipizide have been on hold. He has been treated with Zofran for nausea. He did have an unwitnessed fall night before last. He did not hit his head. He had a flat plate and upright abdominal x-ray on 02/24/2020, which showed moderate amount of retained stool. PHYSICAL EXAMINATION: VITAL SIGNS: Temp is 97.9, pulse is 73, respirations 16, blood pressure 147/67, O2 saturation is 96% on room air. SKIN: Warm and dry to touch. He does appear better hydrated. CARDIAC: Reveals S1, S2 to be normal. Rate and rhythm are regular. No murmur, click, or gallop is auscultated. LUNGS: Clear without rales, wheezes, or rhonchi. ABDOMEN: Soft, nontender. Bowel sounds are present and normal in all four quadrants of the abdomen. EXTREMITIES: There is no pedal edema. IMPRESSION: 1. Diabetic emergency with hypoglycemia. Glucose admission was greater than 800. His glucose readings have improved considerably. I increased his Lantus to 15 units subcutaneously daily. He will continue sliding scale insulin as needed. Metformin and glipizide are on hold for now. We will continue IV hydration of half-normal saline at 125 mL/h. He will continue q.i.d. glucose measurements. 2. Hypernatremia, resolved. 3. Pseudohypokalemia, resolved. 4. Hypertension. He has a history of hypertension, but was hypotensive when he was in the emergency room. Benazepril has been restarted. He was on amlodipine in the past, however, this has not been restarted as of yet. 5. Acute renal insufficiency. BUN and creatinine are normal at this time. This was probably most likely due to acute kidney injury secondary to dehydration due to hyperglycemia. We will continue IV fluids. 6. Hyperlipidemia, on statin. 7. He has had two negative COVID-19 readings. He may be moved out of the negative pressure room at this time. 8. DVT prophylaxis. He has been on enoxaparin. He is encouraged to ambulate. He has had a PT consult. He is quite deconditioned as he has been ill now for one week. He can be out walking in the hallways now. 9. Gastroparesis. Reglan has been ordered. He received milk of magnesia yesterday and received a suppository today. He did have a bowel movement today. Hopefully, this helps his gastrointestinal system function better. I do believe this gastroparesis is due to his uncontrolled diabetes. We will continue to encourage food and fluids. 10.Code status is DNR/DNI. He is being transferred to swing bed today. He will have some physical therapy qualifications. He is not ready to go home as he is not able to tolerate a regular/diabetic diet at this time. His hope is to go home before his birthday on 03/01/2019. Hopefully, we can accommodate this request if he is tolerating food and he is stable. He does seem to be improving, however, does need more time for the resolution of the gastroparesis. THIS DOCUMENT IS TO BE USED AN ADMISSION H AND P FOR THE PATIENT'S SWING BED STAY. /[id number]/MODL
[2020-02-26] MEDS ORDERED: Sodium Chloride 0.9% 10 ML Syringe FLUSH SCH (21:00)
[2020-02-27] MEDS ORDERED: Pantoprazole 40 MG in Sodium Chloride 0.9% 100 ML IV SCH (09:00)
[2020-02-27] MEDS ORDERED: Insulin Glargine,Human Rec. Analog 100 Units/ML 3 ML Pen SUBCUT SCH (09:00)
== END 2020-02-26 14:00 | disposition swing bed (61) | DRG 638 ==
LOC: KA.ED 11:55 → KA.MS 16:15
PROVIDERS: ADMIT Internal Medicine; ATTEND Internal Medicine
DX: E11.65 Type 2 diabetes mellitus with hyperglycemia (principal); E87.0 Hyperosmolality and hypernatremia; N17.9 Acute kidney failure, unspecified; Z79.4 Long term (current) use of insulin; I95.9 Hypotension, unspecified; E78.5 Hyperlipidemia, unspecified; E87.6 Hypokalemia; E86.0 Dehydration; R11.2 Nausea with vomiting, unspecified; E11.43 Type 2 diabetes mellitus with diabetic autonomic (poly)neuropathy; K31.84 Gastroparesis; Z66 Do not resuscitate; Z79.84 Long term (current) use of oral hypoglycemic drugs; Z86.010 Personal history of colon polyps; Z90.49 Acquired absence of other specified parts of digestive tract; Z79.82 Long term (current) use of aspirin; Z79.899 Other long term (current) drug therapy; E78.00 Pure hypercholesterolemia, unspecified; I10 Essential (primary) hypertension; F17.200 Nicotine dependence, unspecified, uncomplicated; Z20.828 Contact with and (suspected) exposure to other viral communicable diseases
CPT/HCPCS: 36415; 71046; 74021; 80048; 80053; 81003; 82962; 83036; 83605; 83690; 83735; 84145; 85025; 85027; 96374; 97161-GP; 99223; 99285-25; A9270-GY; C9113; J1650; J1815-GY; J2405; J2550; J2765; J7030; U0002

== ENCOUNTER 2020-02-26 11:32 | Inpatient (IN) | payer OTHER ==
[2020-02-26] MEDS ORDERED: Bisacodyl 10 MG Supp RECTAL PRN (15:04)
[2020-02-26] MEDS ORDERED: 50% Dextrose in Water 50 ML Syringe IV PRN (15:08)
[2020-02-26] MEDS ORDERED: Glucagon,Human Recombinant 1 MG Vial IM PRN (15:08)
[2020-02-26] MEDS ORDERED: Ondansetron 4 MG/2 ML SDV IVPUSH PRN (15:10)
[2020-02-26] MEDS: Sodium Chloride 0.45% 1,000 ML IV SCH ×2 (15:50→23:46)
[2020-02-26] MEDS: Metoclopramide 10 MG/2 ML SDV IVPUSH SCH ×2 (15:55→22:25)
[2020-02-26] MEDS: Insulin Aspart 100 Units/ML 3 ML Pen SUBCUT SCH ×2 (17:53→22:11)
[2020-02-26] MEDS: Simvastatin 20 MG Tab PO SCH (21:58)
[2020-02-26] MEDS: Enoxaparin 40 MG/0.4 ML Syringe SUBCUT SCH (22:09)
[2020-02-27] MEDS: Metoclopramide 10 MG/2 ML SDV IVPUSH SCH ×4 (03:58→22:00)
[2020-02-27] MEDS: Sodium Chloride 0.45% 1,000 ML IV SCH ×2 (07:47→15:42)
[2020-02-27] MEDS: Insulin Aspart 100 Units/ML 3 ML Pen SUBCUT SCH ×4 (07:52→21:57)
[2020-02-27] MEDS: Aspirin 81 MG Tab.EC PO SCH (08:22)
[2020-02-27] MEDS: Insulin Glargine,Human Rec. Analog 100 Units/ML 3 ML Pen SUBCUT SCH (08:22)
[2020-02-27] MEDS: Pantoprazole 40 MG Vial IVPUSH SCH (08:22)
[2020-02-27] MEDS: Benazepril 10 MG Tab PO SCH (08:22)
[2020-02-27 09:11] LABS: ANION GAP 18.9 mmol/L (5-15); CHLORIDE,CL 105 mmol/L (98-115); SODIUM,NA 137 mmol/L (136-145)
[2020-02-27] MEDS: Simvastatin 20 MG Tab PO SCH (21:55)
[2020-02-27] MEDS: Enoxaparin 40 MG/0.4 ML Syringe SUBCUT SCH (21:58)
[2020-02-28] MEDS: Sodium Chloride 0.45% 1,000 ML IV SCH ×2 (00:03→07:35)
[2020-02-28] MEDS: Metoclopramide 10 MG/2 ML SDV IVPUSH SCH ×5 (03:30→21:01)
[2020-02-28] MEDS: Benazepril 10 MG Tab PO SCH (07:59)
[2020-02-28] MEDS: Aspirin 81 MG Tab.EC PO SCH (07:59)
[2020-02-28] MEDS: Pantoprazole 40 MG Vial IVPUSH SCH (08:00)
[2020-02-28] MEDS: Insulin Aspart 100 Units/ML 3 ML Pen SUBCUT SCH ×4 (08:01→21:25)
[2020-02-28] MEDS: Insulin Glargine,Human Rec. Analog 100 Units/ML 3 ML Pen SUBCUT SCH (08:02)
[2020-02-28] MEDS ORDERED: Sodium Chloride 0.45% 1,000 ML IV SCH (11:30)
[2020-02-28 15:47] LABS: ANION GAP 20.6 mmol/L (5-15); CHLORIDE,CL 104 mmol/L (98-115); SODIUM,NA 137 mmol/L (136-145)
[2020-02-28] MEDS: Enoxaparin 40 MG/0.4 ML Syringe SUBCUT SCH (21:27)
[2020-02-28] MEDS: Simvastatin 20 MG Tab PO SCH (21:31)
[2020-02-29] MEDS: Metoclopramide 10 MG/2 ML SDV IVPUSH SCH ×2 (04:16→08:40)
[2020-02-29] MEDS: Insulin Aspart 100 Units/ML 3 ML Pen SUBCUT SCH (07:51)
[2020-02-29 08:02] LABS: ANION GAP 15.8 mmol/L (5-15); CHLORIDE,CL 110 mmol/L (98-115); SODIUM,NA 144 mmol/L (136-145)
[2020-02-29] MEDS: Aspirin 81 MG Tab.EC PO SCH (08:39)
[2020-02-29] MEDS: Pantoprazole 40 MG Vial IVPUSH SCH (08:39)
[2020-02-29] MEDS: Benazepril 10 MG Tab PO SCH (08:39)
[2020-02-29 08:40] VITALS: BP 128/66
[2020-02-29] MEDS: Insulin Glargine,Human Rec. Analog 100 Units/ML 3 ML Pen SUBCUT SCH (08:49)
[2020-02-29 09:38] VITALS: PULSE 83
--- NOTE | 2020-02-29 16:48 | DISCH ---
This is a 74-year-old male who was admitted to acute care on 02/22/2020 with severe dehydration due to uncontrolled diabetes and poor oral intake. His hydration status did improve and his renal function, which was previously elevated, did come back to normal. His blood sugars improved as well after starting him on Lantus. His oral diabetic medications were held. He continued to improve. However, we did put him in swing bed on 02/26/2020, due to the fact that the patient still was not able to eat well. There was some suspicion of gastroparesis. He was placed on metoclopramide which is also known as Reglan and he did improve. Over the weekend, his oral intake improved considerably. Today when I walk in the room, the patient is dressed and ready to go home. I feel that this is appropriate at this time. Pertinent labs from today. CBC was within normal range. Comprehensive metabolic panel shows normal electrolytes. BUN and creatinine are 6 and 0.74 respectively with a GFR greater than 60. Total protein and albumin were somewhat low, but this should improve with returning to a normal oral intake. PHYSICAL EXAMINATION: VITAL SIGNS: Temp is 98.7, pulse 92, respirations 16, blood pressure 128/66, O2 saturation is 98% on room air. SKIN: Warm and dry to touch. CARDIAC: Reveals S1, S2 to be normal. Rate and rhythm are regular. No murmur, click or gallops auscultated. LUNGS: Clear. ABDOMEN: Soft, nontender. Bowel sounds present in all four quadrants. EXTREMITIES: There is no pedal edema. IMPRESSION: 1. Diabetic emergency with hypoglycemia. This did improve considerably with Lantus. The patient has a history of being somewhat noncompliant. I discharged him on the medications he was admitted with, which is 40 of glipizide a day and 2000 mg of metformin a day. He will check his glucose readings for the next 10 days randomly and follow up with me in 10 days. We may need to add some insulin in however, I am not convinced that the patient will be compliant with that. 2. Hypernatremia. This was resolved. 3. Hypokalemia. This was resolved. 4. Hypertension. Benazepril and amlodipine were discontinued on admission due to hypotension. The benazepril was restarted. His blood pressure is not high enough to add in the amlodipine. We will continue to monitor this and hopefully add that in if need be at some point in time. If he stays normotensive with just the benazepril, we will keep him off the amlodipine. 5. Acute renal insufficiency. This is resolved. BUN and creatinine are normal. We did discontinue his IV fluids on 02/27/2020 and he was able to maintain a good oral intake with fluids as well as food. 6. Hyperlipidemia, on statin. 7. He has had 2 negative COVID-19 readings. He was in a negative pressure room for most of his acute stay, however, was transferred out of the negative pressure room on the day he was transferred to swing bed. 8. DVT prophylaxis. He has been on enoxaparin. He has been up ambulating. He did have a PT consult. I believe he will do well at home. 9. Gastroparesis. This has improved with the Reglan. I did not send him home on any oral Reglan. Hopefully his gastrointestinal system function will continue to improve. 10.He is a DNR/DNI. He was instructed to continue all medications as before except amlodipine. He was instructed to stop the amlodipine. I renewed all of his medications at his pharmacy. I asked him to monitor his blood sugar every day at random times. He was instructed to follow a diabetic diet. I encouraged him to exercise regularly. I also advised him to drink plenty of fluids preferably water. He will follow up with me in 10 days and bring his blood sugar logs with. He was encouraged to call the clinic or the hospital with any questions or concerns arose. The patient verbalizes understanding of plan of care and wishes to proceed. /[id number]/MODL
== END 2020-02-29 10:29 | disposition home or self-care (01) | DRG 638 ==
LOC: KA.MS 14:01 → UNDOADMIN 14:01 → KA.MS 14:52
DX: E11.65 Type 2 diabetes mellitus with hyperglycemia (principal); E87.0 Hyperosmolality and hypernatremia; E11.43 Type 2 diabetes mellitus with diabetic autonomic (poly)neuropathy; K31.84 Gastroparesis; Z79.4 Long term (current) use of insulin; E86.0 Dehydration; E87.6 Hypokalemia; I10 Essential (primary) hypertension; N28.9 Disorder of kidney and ureter, unspecified; Z66 Do not resuscitate; E78.5 Hyperlipidemia, unspecified
CPT/HCPCS: 36415; 80053; 82962; 85025; A9270-GY; C9113; J1650; J1815-GY; J2765; J7030

== ENCOUNTER 2023-12-06 08:36 | Emergency (ER) | payer MEDICARE ==
[2023-12-06] MEDS ORDERED: Sodium Chloride 0.9% 10 ML Syringe FLUSH PRN (08:55)
[2023-12-06] MEDS: Sodium Chloride 0.9% 1,000 ML IV ONE (09:23)
[2023-12-06 09:35] VITALS: BP 112/67; PULSE 131
[2023-12-06 09:40] LABS: LACTIC ACID 1.6 mmol/L (0.4-2.0)
[2023-12-06 11:09] LABS: APPEARANCE,URINE CLEAR (CLEAR); BILIRUBIN,URINE NEGATIVE (NEGATIVE); COLOR,URINE YELLOW (YELLOW); GLUCOSE,URINE >=1000 mg/dL (NEGATIVE); KETONES,URINE NEGATIVE (NEGATIVE); LEUKOCYTE ESTERASE,URINE NEGATIVE (NEGATIVE); NITRITE,URINE NEGATIVE (NEGATIVE); OCCULT BLOOD,URINE NEGATIVE (NEGATIVE); PROTEIN,URINE NEGATIVE (NEGATIVE)
== END 2023-12-06 10:45 | disposition home or self-care (01) ==
LOC: KA.ED 08:36
DX: E86.0 Dehydration (principal); E11.65 Type 2 diabetes mellitus with hyperglycemia; M25.562 Pain in left knee; I10 Essential (primary) hypertension; E78.00 Pure hypercholesterolemia, unspecified; E66.9 Obesity, unspecified; Z68.25 Body mass index [BMI] 25.0-25.9, adult; Z90.49 Acquired absence of other specified parts of digestive tract; Z79.899 Other long term (current) drug therapy; Z79.84 Long term (current) use of oral hypoglycemic drugs
CPT/HCPCS: 36415; 71045; 73562-LT; 81003; 82947; 83605; 84484; 96360; 99285-25; J7030

== ENCOUNTER 2023-12-27 15:35 | Emergency (ER) | payer MEDICARE ==
[2023-12-27 16:20] LABS: BASOPHILS ABSOLUTE AUTO 0.01 10^3/uL (0.00-0.10); BASOPHILS PERCENT AUTO 0.1 % (0.0-1.0); HEMATOCRIT 27.8 % (40.0-52.0); HEMOGLOBIN 9.7 g/dL (13.0-17.0); IMMATURE GRAN ABSOLUTE AUTO 0.08 10^3/uL (0.00-0.50); IMMATURE GRAN PERCENT AUTO 0.6 % (0.0-5.0); LYMPHOCYTES ABSOLUTE AUTO 1.07 10^3/uL (1.00-4.00); LYMPHOCYTES PERCENT AUTO 7.4 % (20.0-40.0); MEAN CORPUSCULAR HEMOGLOBIN 29.1 pg (27.0-31.0); MEAN CORPUSCULAR HGB CONC 34.9 g/dL (32.0-36.0); MEAN CORPUSCULAR VOLUME 83.5 fL (82.0-92.0); MEAN PLATELET VOLUME 10.5 fL (7.4-10.4); MONOCYTES ABSOLUTE AUTO 0.69 10^3/uL (0.10-0.80); MONOCYTES PERCENT AUTO 4.8 % (2.0-8.0); NEUTROPHILS ABSOLUTE AUTO 12.66 10^3/uL (2.50-7.00); NEUTROPHILS PERCENT AUTO 87.1 % (50.0-70.0); PLATELET COUNT,PLT 290 10^3/uL (150-400); RED BLOOD CELL COUNT 3.33 10^6/uL (4.50-6.00); RED CELL DISTRIBUTION WIDTH 12.3 % (11.5-14.5); WHITE BLOOD CELL COUNT,WBC 14.51 10^3/uL (5.00-10.00)
[2023-12-27 16:23] VITALS: BP 108/51; PULSE 98
[2023-12-27 16:29] LABS: ALBUMIN 2.26 g/dL (3.40-5.00); ANION GAP 13.9 mmol/L (5-15); BILIRUBIN TOTAL 0.5 mg/dL (0.2-1.0); C-REACTIVE PROTEIN 2.25 mg/dL (0.00-0.50); CALCIUM 8.1 mg/dL (8.7-10.3); CARBON DIOXIDE,CO2 31.5 mmol/L (21.0-32.0); CREATININE 1.3 mg/dL (0.51-1.17); EST CRCL DRUG DOSING (CG) 46.04 mL/min; PROTEIN TOTAL,TP 6.1 g/dL (6.4-8.2)
[2023-12-27 16:32] LABS: POTASSIUM,K 2.4 mmol/L (3.5-5.1)
[2023-12-27 16:36] LABS: PROTHROMBIN TIME 10.7 SEC (9.3-12.2)
[2023-12-27] MEDS: Sodium Chloride 0.9% 1,000 ML IV ONE ×2 (17:00→18:40)
[2023-12-27 17:39] LABS: APPEARANCE,URINE SLIGHTLY CLOUDY (CLEAR); COLOR,URINE YELLOW (YELLOW); PH,URINE 5.5 (5.0-9.0); PROTEIN,URINE 30 mg/dL (NEGATIVE)
[2023-12-27 17:40] LABS: BACTERIA,URINE FEW /HPF (NONE TO FEW); BILIRUBIN,URINE NEGATIVE (NEGATIVE); EPITHELIAL CELLS,URINE FEW /LPF; GLUCOSE,URINE >=1000 mg/dL (NEGATIVE); KETONES,URINE TRACE mg/dL (NEGATIVE); LEUKOCYTE ESTERASE,URINE TRACE (NEGATIVE); NITRITE,URINE POSITIVE (NEGATIVE); OCCULT BLOOD,URINE SMALL (NEGATIVE); RBC,URINE 0-5 /HPF (0-5); UROBILINOGEN,URINE 0.2 E.U./dL (0.2-1.0)
[2023-12-27] MEDS: Ondansetron 4 MG/2 ML SDV IVPUSH ONE (19:05)
[2023-12-27] MEDS: Insulin Regular, Human 100 Units/ML 10 ML Vial SUBCUT ONE (19:41)
[2023-12-27] MEDS: Ondansetron 4 MG/2 ML SDV ONE (19:50)
[2023-12-27] MEDS: Sodium Chloride 0.9% 1,000 ML ONE (19:50)
[2023-12-27] MEDS: NS + KCl 20mEq/L 1,000 ML IV SCH (19:54)
[2023-12-27] MEDS: Pantoprazole 40 MG Vial IVPUSH ONE (20:40)
[2023-12-27] MEDS: Pantoprazole 40 MG Vial ONE (20:40)
== END 2023-12-27 20:43 ==
LOC: KA.ED 15:35
DX: S22.089A Unspecified fracture of T11-T12 vertebra, initial encounter for closed fracture (principal); S22.31XA Fracture of one rib, right side, initial encounter for closed fracture; S82.002A Unspecified fracture of left patella, initial encounter for closed fracture; E11.9 Type 2 diabetes mellitus without complications; I10 Essential (primary) hypertension; Z79.899 Other long term (current) drug therapy; Z90.49 Acquired absence of other specified parts of digestive tract; W19.XXXA Unspecified fall, initial encounter
CPT/HCPCS: 51702; 71045; 72100; 73552; 73562; 80053; 81001; 82270; 85025; 85610; 86140; 87086; 87088; 87186; 96361; 96365; 96375; 99284; 99285; A9270; J2405; J2470; J3480; J7030

== ENCOUNTER 2024-01-06 11:48 | Inpatient (IN) | payer MEDICARE ==
[2024-01-06] MEDS ORDERED: Polyethylene Glycol 3350 Powder 17 GM Packet PO PRN (15:50)
[2024-01-06] MEDS ORDERED: Acetaminophen 325 MG Tab PO PRN (15:50)
[2024-01-06] MEDS ORDERED: Sennosides/Docusate Sodium 50-8.6 MG Tab PO PRN (15:50)
[2024-01-06] MEDS ORDERED: Cyclobenzaprine 5 MG Tab PO PRN (15:55)
[2024-01-06] MEDS ORDERED: 50% Dextrose in Water 50 ML Syringe IVPUSH PRN (15:56)
[2024-01-06] MEDS ORDERED: Glucagon,Human Recombinant 1 MG Vial IM PRN (15:56)
[2024-01-06] MEDS ORDERED: Non-Formulary Medication 1 Each (Omeprazole [Omeprazole] 40 MG Capsule.Dr) PO SCH (16:00)
[2024-01-06] MEDS: Pantoprazole 40 MG Tab.CR PO SCH (17:37)
[2024-01-06] MEDS: glipiZIDE 5 MG Tab.ER PO SCH (17:55)
[2024-01-06] MEDS: ceFAZolin 1 GM Vial IVPUSH SCH (17:55)
[2024-01-06] MEDS: metFORMIN 500 MG Tab PO SCH (17:55)
[2024-01-06] MEDS: Insulin Lispro 100 Unit/ML 3 ML KwikPen SUBCUT SCH (17:56)
[2024-01-06] MEDS: Ondansetron 4 MG Tab.DIS PO PRN (18:53)
[2024-01-06] MEDS: Diclofenac Sodium 1% Gel 100 GM Tube TOP PRN (19:00)
[2024-01-06] MEDS: Gabapentin 300 MG Cap PO SCH (20:00)
[2024-01-06] MEDS: atorvaSTATin 10 MG Tab PO SCH (20:01)
[2024-01-06] MEDS ORDERED: Non-Formulary Medication 1 Each (Simvastatin [Simvastatin] 20 MG Tablet) PO SCH (21:00)
[2024-01-07] MEDS: Sodium Chloride 0.9% 10 ML Syringe FLUSH SCH ×2 (02:28→10:27)
[2024-01-07] MEDS ORDERED: Non-Formulary Medication 1 Each (Semaglutide [Rybelsus] 3 MG Tablet) PO SCH (07:30)
[2024-01-07 07:48] LABS: BASOPHILS ABSOLUTE AUTO 0.02 10^3/uL (0.00-0.10); BASOPHILS PERCENT AUTO 0.2 % (0.0-1.0); EOSINOPHILS ABSOLUTE AUTO 0.16 10^3/uL (0.10-0.30); HEMATOCRIT 30.6 % (40.0-52.0); HEMOGLOBIN 9.7 g/dL (13.0-17.0); IMMATURE GRAN ABSOLUTE AUTO 0.02 10^3/uL (0.00-0.50); IMMATURE GRAN PERCENT AUTO 0.2 % (0.0-5.0); LYMPHOCYTES ABSOLUTE AUTO 1.38 10^3/uL (1.00-4.00); MEAN CORPUSCULAR HEMOGLOBIN 28.7 pg (27.0-31.0); MEAN CORPUSCULAR HGB CONC 31.7 g/dL (32.0-36.0); MEAN CORPUSCULAR VOLUME 90.5 fL (82.0-92.0); MEAN PLATELET VOLUME 9.3 fL (7.4-10.4); MONOCYTES ABSOLUTE AUTO 0.64 10^3/uL (0.10-0.80); MONOCYTES PERCENT AUTO 7.9 % (2.0-8.0); NEUTROPHILS ABSOLUTE AUTO 5.89 10^3/uL (2.50-7.00); NEUTROPHILS PERCENT AUTO 72.7 % (50.0-70.0); PLATELET COUNT,PLT 377 10^3/uL (150-400); RED BLOOD CELL COUNT 3.38 10^6/uL (4.50-6.00); RED CELL DISTRIBUTION WIDTH 14.4 % (11.5-14.5); WHITE BLOOD CELL COUNT,WBC 8.11 10^3/uL (5.00-10.00)
[2024-01-07 08:07] LABS: ALBUMIN 1.66 g/dL (3.40-5.00); ANION GAP 9.7 mmol/L (5-15); BILIRUBIN TOTAL 0.3 mg/dL (0.2-1.0); CALCIUM 7.7 mg/dL (8.7-10.3); CARBON DIOXIDE,CO2 28.5 mmol/L (21.0-32.0); CREATININE 0.77 mg/dL (0.51-1.17); EST CRCL DRUG DOSING (CG) 75.11 mL/min; POTASSIUM,K 3.2 mmol/L (3.5-5.1); PROTEIN TOTAL,TP 5.6 g/dL (6.4-8.2)
[2024-01-07] MEDS: amLODIPine 5 MG Tab PO SCH (08:11)
[2024-01-07] MEDS: Aspirin 81 MG Tab.EC PO SCH (08:11)
[2024-01-07] MEDS: Lisinopril 20 MG Tab PO SCH (08:13)
[2024-01-07] MEDS: Bacitracin Oint 28.35 GM Tube TOP SCH (08:28)
[2024-01-07] MEDS ORDERED: BENAZEPRIL 10 MG PO SCH (09:00)
[2024-01-08 15:44] LABS: BASOPHILS ABSOLUTE AUTO 0.01 10^3/uL (0.00-0.10); BASOPHILS PERCENT AUTO 0.1 % (0.0-1.0); EOSINOPHILS ABSOLUTE AUTO 0.13 10^3/uL (0.10-0.30); EOSINOPHILS PERCENT AUTO 1.4 % (1.0-3.0); HEMATOCRIT 32.1 % (40.0-52.0); HEMOGLOBIN 10.5 g/dL (13.0-17.0); IMMATURE GRAN ABSOLUTE AUTO 0.01 10^3/uL (0.00-0.50); IMMATURE GRAN PERCENT AUTO 0.1 % (0.0-5.0); LYMPHOCYTES ABSOLUTE AUTO 0.95 10^3/uL (1.00-4.00); LYMPHOCYTES PERCENT AUTO 10.4 % (20.0-40.0); MEAN CORPUSCULAR HEMOGLOBIN 29.4 pg (27.0-31.0); MEAN CORPUSCULAR HGB CONC 32.7 g/dL (32.0-36.0); MEAN CORPUSCULAR VOLUME 89.9 fL (82.0-92.0); MEAN PLATELET VOLUME 9.1 fL (7.4-10.4); MONOCYTES PERCENT AUTO 5.5 % (2.0-8.0); NEUTROPHILS ABSOLUTE AUTO 7.54 10^3/uL (2.50-7.00); NEUTROPHILS PERCENT AUTO 82.5 % (50.0-70.0); PLATELET COUNT,PLT 424 10^3/uL (150-400); RED BLOOD CELL COUNT 3.57 10^6/uL (4.50-6.00); RED CELL DISTRIBUTION WIDTH 14.7 % (11.5-14.5); WHITE BLOOD CELL COUNT,WBC 9.14 10^3/uL (5.00-10.00)
[2024-01-09 12:29] LABS: HEMOGLOBIN A1C 11.8 % (4.3-5.7)
[2024-01-10] MEDS: Acetaminophen/HYDROcodone 325-5 MG Tab PO PRN (07:44)
[2024-01-11] MEDS: ceFAZolin 1 GM Vial ONE (10:47)
[2024-01-11] MEDS ORDERED: Loperamide 2 MG Cap PO PRN (13:47)
[2024-01-12] MEDS: Insulin Glargine,Hum.Rec.Anlog 100 UNIT/ML 3 ML Pen SUBCUT SCH (22:36)
[2024-01-13 07:22] LABS: BASOPHILS ABSOLUTE AUTO 0.02 10^3/uL (0.00-0.10); BASOPHILS PERCENT AUTO 0.4 % (0.0-1.0); EOSINOPHILS ABSOLUTE AUTO 0.19 10^3/uL (0.10-0.30); EOSINOPHILS PERCENT AUTO 3.6 % (1.0-3.0); HEMATOCRIT 29.4 % (40.0-52.0); HEMOGLOBIN 9.4 g/dL (13.0-17.0); LYMPHOCYTES ABSOLUTE AUTO 1.23 10^3/uL (1.00-4.00); LYMPHOCYTES PERCENT AUTO 23.1 % (20.0-40.0); MEAN CORPUSCULAR HEMOGLOBIN 28.9 pg (27.0-31.0); MEAN CORPUSCULAR VOLUME 90.5 fL (82.0-92.0); MEAN PLATELET VOLUME 9.1 fL (7.4-10.4); MONOCYTES ABSOLUTE AUTO 0.49 10^3/uL (0.10-0.80); MONOCYTES PERCENT AUTO 9.2 % (2.0-8.0); NEUTROPHILS PERCENT AUTO 63.7 % (50.0-70.0); PLATELET COUNT,PLT 396 10^3/uL (150-400); RED BLOOD CELL COUNT 3.25 10^6/uL (4.50-6.00); RED CELL DISTRIBUTION WIDTH 15.9 % (11.5-14.5); WHITE BLOOD CELL COUNT,WBC 5.33 10^3/uL (5.00-10.00)
[2024-01-13 07:39] LABS: ALBUMIN 1.97 g/dL (3.40-5.00); ALKALINE PHOSPHATASE 201 U/L (46-116); ASPARTATE AMNIOTRANSFERASE,AST 12 U/L (15-37); BILIRUBIN TOTAL 0.4 mg/dL (0.2-1.0); BLOOD UREA NITROGEN,BUN 4 mg/dL (7-18); CALCIUM 7.9 mg/dL (8.7-10.3); CARBON DIOXIDE,CO2 32.1 mmol/L (21.0-32.0); CHLORIDE,CL 103 mmol/L (98-107); CREATININE 0.57 mg/dL (0.51-1.17); EST CRCL DRUG DOSING (CG) 101.47 mL/min; GLUCOSE RANDOM 175 mg/dL (70-140); POTASSIUM,K 2.8 mmol/L (3.5-5.1)
[2024-01-13 07:55] LABS: ALANINE AMINOTRANSFERASE,ALT 6 U/L (14-63)
[2024-01-13 08:04] LABS: ANION GAP 7.7 mmol/L (5-15); SODIUM,NA 140 mmol/L (136-145)
[2024-01-13 08:06] LABS: C-REACTIVE PROTEIN < 0.50 mg/dL (0.00-0.50); ESTIMATED GFR 101 mL/min (>=60)
[2024-01-13] MEDS: Potassium Chloride 20 MEQ Tab.ER PO ONE (09:08)
[2024-01-13] MEDS: Potassium Chloride 40 MEQ in Premix Bag 1 BAG IV ONE (09:09)
[2024-01-13 17:14] LABS: ANION GAP 12.7 mmol/L (5-15); CALCIUM 7.9 mg/dL (8.7-10.3); CARBON DIOXIDE,CO2 28.1 mmol/L (21.0-32.0); CREATININE 0.55 mg/dL (0.51-1.17); EST CRCL DRUG DOSING (CG) 105.16 mL/min; POTASSIUM,K 3.8 mmol/L (3.5-5.1)
[2024-01-17 10:19] LABS: ANION GAP 10.9 mmol/L (5-15); CALCIUM 8.1 mg/dL (8.7-10.3); CARBON DIOXIDE,CO2 29.4 mmol/L (21.0-32.0); CREATININE 0.57 mg/dL (0.51-1.17); EST CRCL DRUG DOSING (CG) 101.47 mL/min; MAGNESIUM 1.5 mg/dL (1.8-2.4); POTASSIUM,K 3.3 mmol/L (3.5-5.1)
[2024-01-17] MEDS: Potassium Chloride 20 MEQ Tab.ER PO SCH (15:08)
[2024-01-17] MEDS: Magnesium Oxide 500 MG Tab PO SCH (15:08)
[2024-01-20 08:15] LABS: BASOPHILS ABSOLUTE AUTO 0.04 10^3/uL (0.00-0.10); BASOPHILS PERCENT AUTO 0.8 % (0.0-1.0); EOSINOPHILS ABSOLUTE AUTO 0.27 10^3/uL (0.10-0.30); EOSINOPHILS PERCENT AUTO 5.2 % (1.0-3.0); HEMATOCRIT 31.8 % (40.0-52.0); LYMPHOCYTES ABSOLUTE AUTO 1.37 10^3/uL (1.00-4.00); LYMPHOCYTES PERCENT AUTO 26.6 % (20.0-40.0); MEAN CORPUSCULAR HEMOGLOBIN 29.4 pg (27.0-31.0); MEAN CORPUSCULAR HGB CONC 31.4 g/dL (32.0-36.0); MEAN CORPUSCULAR VOLUME 93.5 fL (82.0-92.0); MEAN PLATELET VOLUME 9.1 fL (7.4-10.4); MONOCYTES ABSOLUTE AUTO 0.44 10^3/uL (0.10-0.80); MONOCYTES PERCENT AUTO 8.5 % (2.0-8.0); NEUTROPHILS ABSOLUTE AUTO 3.04 10^3/uL (2.50-7.00); NEUTROPHILS PERCENT AUTO 58.9 % (50.0-70.0); PLATELET COUNT,PLT 267 10^3/uL (150-400); RED CELL DISTRIBUTION WIDTH 16.2 % (11.5-14.5); WHITE BLOOD CELL COUNT,WBC 5.16 10^3/uL (5.00-10.00)
[2024-01-20 08:33] LABS: ALANINE AMINOTRANSFERASE,ALT 8 U/L (14-63); ALKALINE PHOSPHATASE 190 U/L (46-116); ANION GAP 10.6 mmol/L (5-15); ASPARTATE AMNIOTRANSFERASE,AST 15 U/L (15-37); BILIRUBIN TOTAL 0.4 mg/dL (0.2-1.0); BLOOD UREA NITROGEN,BUN 6 mg/dL (7-18); CALCIUM 7.9 mg/dL (8.7-10.3); CARBON DIOXIDE,CO2 29.3 mmol/L (21.0-32.0); CHLORIDE,CL 103 mmol/L (98-107); CREATININE 0.59 mg/dL (0.51-1.17); EST CRCL DRUG DOSING (CG) 98.03 mL/min; GLUCOSE RANDOM 136 mg/dL (70-140); POTASSIUM,K 3.9 mmol/L (3.5-5.1); PROTEIN TOTAL,TP 6.3 g/dL (6.4-8.2); SODIUM,NA 139 mmol/L (136-145)
[2024-01-20 08:38] LABS: C-REACTIVE PROTEIN < 0.50 mg/dL (0.00-0.50); ESTIMATED GFR 100 mL/min (>=60)
[2024-01-20] MEDS ORDERED: Bacitracin Oint 28.35 GM Tube TOP PRN (19:04)
[2024-01-22 13:40] LABS: CALCIUM 8.3 mg/dL (8.7-10.3); CARBON DIOXIDE,CO2 28.7 mmol/L (21.0-32.0); CREATININE 0.61 mg/dL (0.51-1.17); EST CRCL DRUG DOSING (CG) 94.82 mL/min
[2024-01-22 13:41] LABS: POTASSIUM,K 4.7 mmol/L (3.5-5.1)
[2024-01-22] MEDS: Furosemide 40 MG/4 ML VIAL IVPUSH SCH (14:37)
[2024-01-23 08:02] LABS: ALBUMIN 2.39 g/dL (3.40-5.00); ANION GAP 12.2 mmol/L (5-15); CALCIUM 8.2 mg/dL (8.7-10.3); CARBON DIOXIDE,CO2 30.7 mmol/L (21.0-32.0); CREATININE 0.71 mg/dL (0.51-1.17); EST CRCL DRUG DOSING (CG) 81.46 mL/min; PHOSPHORUS 4.1 mg/dL (2.6-4.7); POTASSIUM,K 3.9 mmol/L (3.5-5.1)
[2024-01-23] MEDS: Potassium Chloride 10 MEQ Tab.ER PO ONE (12:30)
[2024-01-23] MEDS: Furosemide 40 MG/4 ML VIAL IVPUSH ONE (12:32)
[2024-01-24 07:12] LABS: ALBUMIN 2.28 g/dL (3.40-5.00); ANION GAP 10.7 mmol/L (5-15); CALCIUM 7.9 mg/dL (8.7-10.3); CREATININE 0.72 mg/dL (0.51-1.17); EST CRCL DRUG DOSING (CG) 80.33 mL/min; PHOSPHORUS 3.7 mg/dL (2.6-4.7); POTASSIUM,K 3.7 mmol/L (3.5-5.1)
[2024-01-24] MEDS: Furosemide 40 MG/4 ML VIAL IVPUSH ONE (14:25)
[2024-01-25 12:30] VITALS: BP 119/73; PULSE 96
== END 2024-01-25 11:55 | disposition home or self-care (01) | DRG 947 ==
LOC: KA.MS 14:25
PROVIDERS: ADMIT Internal Medicine; ATTEND Internal Medicine
DX: R53.81 Other malaise (principal); K25.4 Chronic or unspecified gastric ulcer with hemorrhage; I50.32 Chronic diastolic (congestive) heart failure; R78.81 Bacteremia; S82.009D Unspecified fracture of unspecified patella, subsequent encounter for closed fracture with routine healing; S22.31XD Fracture of one rib, right side, subsequent encounter for fracture with routine healing; K22.70 Barrett's esophagus without dysplasia; I11.0 Hypertensive heart disease with heart failure; Z68.28 Body mass index [BMI] 28.0-28.9, adult; E66.9 Obesity, unspecified; E78.00 Pure hypercholesterolemia, unspecified; B95.61 Methicillin susceptible Staphylococcus aureus infection as the cause of diseases classified elsewhere; E11.65 Type 2 diabetes mellitus with hyperglycemia; Z79.4 Long term (current) use of insulin; Z79.82 Long term (current) use of aspirin; Z79.84 Long term (current) use of oral hypoglycemic drugs; Z90.89 Acquired absence of other organs; Z79.899 Other long term (current) drug therapy; Z86.0109 Personal history of other colon polyps; X58.XXXD Exposure to other specified factors, subsequent encounter
CPT/HCPCS: 36415; 71045; 80048; 80053; 80069; 82947; 83036; 83735; 83880; 85025; 85652; 86140; 99306-GT; 99307-GT; 99316-GT; A9270-GY; J0690; J1815-GY; J1940; J3480; J3490; Q3014

== ENCOUNTER 2024-02-25 12:11 | Emergency (ER) | payer MEDICARE ==
[2024-02-25] MEDS: Sodium Chloride 0.9% 1,000 ML IV ONE (12:23)
[2024-02-25 12:37] VITALS: BP 86/50; PULSE 100
[2024-02-25] MEDS ORDERED: Sodium Chloride 0.9% 10 ML Syringe FLUSH PRN (12:44)
[2024-02-25 12:49] LABS: ALBUMIN 3.23 g/dL (3.40-5.00); ANION GAP 15.5 mmol/L (5-15); BILIRUBIN TOTAL 0.4 mg/dL (0.2-1.0); CALCIUM 8.8 mg/dL (8.7-10.3); CREATININE 1.46 mg/dL (0.51-1.17); EST CRCL DRUG DOSING (CG) 38.24 mL/min; POTASSIUM,K 3.5 mmol/L (3.5-5.1); PROTEIN TOTAL,TP 6.6 g/dL (6.4-8.2)
[2024-02-25] MEDS: Ondansetron 4 MG/2 ML SDV IVPUSH ONE (12:49)
[2024-02-25 12:51] LABS: BASOPHILS ABSOLUTE AUTO 0.04 10^3/uL (0.00-0.10); BASOPHILS PERCENT AUTO 0.3 % (0.0-1.0); HEMATOCRIT 27.7 % (40.0-52.0); IMMATURE GRAN ABSOLUTE AUTO 0.02 10^3/uL (0.00-0.50); IMMATURE GRAN PERCENT AUTO 0.2 % (0.0-5.0); LYMPHOCYTES PERCENT AUTO 14.3 % (20.0-40.0); MEAN CORPUSCULAR HGB CONC 32.5 g/dL (32.0-36.0); MEAN CORPUSCULAR VOLUME 89.4 fL (82.0-92.0); MEAN PLATELET VOLUME 10.3 fL (7.4-10.4); MONOCYTES ABSOLUTE AUTO 0.39 10^3/uL (0.10-0.80); MONOCYTES PERCENT AUTO 3.1 % (2.0-8.0); NEUTROPHILS ABSOLUTE AUTO 10.35 10^3/uL (2.50-7.00); NEUTROPHILS PERCENT AUTO 82.1 % (50.0-70.0); PLATELET COUNT,PLT 325 10^3/uL (150-400)
[2024-02-25] MEDS: Sodium Chloride 0.9% 1,000 ML ONE (12:51)
[2024-02-25] MEDS: Ondansetron 4 MG/2 ML SDV ONE (12:51)
[2024-02-25] MEDS: Sodium Chloride 0.9% 1,000 ML IV SCH ×2 (13:26→15:34)
[2024-02-25 14:21] LABS: APPEARANCE,URINE SLIGHTLY CLOUDY (CLEAR); BILIRUBIN,URINE NEGATIVE (NEGATIVE); COLOR,URINE YELLOW (YELLOW); GLUCOSE,URINE NEGATIVE (NEGATIVE); KETONES,URINE TRACE mg/dL (NEGATIVE); LEUKOCYTE ESTERASE,URINE NEGATIVE (NEGATIVE); NITRITE,URINE NEGATIVE (NEGATIVE); OCCULT BLOOD,URINE NEGATIVE (NEGATIVE); PROTEIN,URINE 30 mg/dL (NEGATIVE); UROBILINOGEN,URINE 0.2 E.U./dL (0.2-1.0)
[2024-02-25 14:23] LABS: EPITHELIAL CELLS,URINE FEW /LPF; RBC,URINE 0-5 /HPF (0-5); WBC,URINE 0-5 /HPF (0-5)
[2024-02-25 14:24] LABS: BACTERIA,URINE RARE /HPF (NONE TO FEW); GRANULAR CASTS,URINE FEW; HYALINE CASTS,URINE FEW; MUCUS,URINE RARE /LPF (NEGATIVE)
[2024-02-25] MEDS: Pantoprazole 40 MG Vial IVPUSH ONE (15:21)
== END 2024-02-25 16:14 ==
LOC: KA.ED 12:11
DX: K92.0 Hematemesis (principal); K92.1 Melena; N17.9 Acute kidney failure, unspecified; I95.89 Other hypotension; E86.1 Hypovolemia; S32.010G Wedge compression fracture of first lumbar vertebra, subsequent encounter for fracture with delayed healing; E86.0 Dehydration; E87.1 Hypo-osmolality and hyponatremia; E87.20 Acidosis, unspecified; I10 Essential (primary) hypertension; E78.00 Pure hypercholesterolemia, unspecified; E66.9 Obesity, unspecified; Z79.4 Long term (current) use of insulin; Z79.82 Long term (current) use of aspirin; Z79.899 Other long term (current) drug therapy; Z90.49 Acquired absence of other specified parts of digestive tract; Z68.24 Body mass index [BMI] 24.0-24.9, adult
CPT/HCPCS: 36415; 51702; 80053; 81001; 82947; 83605; 83880; 85025; 87040; 87804; 93005; 93010; 96361; 96374; 96375; 99284; 99285-25; J2405; J2470; J7030

== ENCOUNTER 2024-02-28 13:47 | Inpatient (IN) | payer MEDICARE ==
[2024-02-28] MEDS ORDERED: Acetaminophen/HYDROcodone 325-10 MG Tab PO PRN (17:07)
[2024-02-28] MEDS: metFORMIN 500 MG Tab PO SCH (17:23)
[2024-02-28] MEDS: Omeprazole 20 MG Cap.CR PO SCH (17:24)
[2024-02-28] MEDS ORDERED: Melatonin 3 MG Tab PO PRN (17:32)
[2024-02-28] MEDS ORDERED: Acetaminophen 325 MG Tab PO PRN (17:32)
[2024-02-28] MEDS: glipiZIDE 5 MG Tab.ER PO SCH (20:50)
[2024-02-28] MEDS: Insulin Glargine,Hum.Rec.Anlog 100 UNIT/ML 3 ML Pen SUBCUT SCH (20:50)
[2024-02-29] MEDS: Rosuvastatin 10 MG Tab PO SCH (08:15)
[2024-02-29] MEDS: Potassium Chloride 20 MEQ Tab.ER PO SCH (08:16)
[2024-02-29] MEDS: Ondansetron 4 MG Tab.DIS PO PRN (23:50)
[2024-03-01] LABS: BASOPHILS ABSOLUTE AUTO 0.03 10^3/uL (0.00-0.10); BASOPHILS PERCENT AUTO 0.4 % (0.0-1.0); EOSINOPHILS ABSOLUTE AUTO 0.09 10^3/uL (0.10-0.30); EOSINOPHILS PERCENT AUTO 1.2 % (1.0-3.0); HEMATOCRIT 29.1 % (40.0-52.0); HEMOGLOBIN 9.6 g/dL (13.0-17.0); IMMATURE GRAN ABSOLUTE AUTO 0.01 10^3/uL (0.00-0.50); IMMATURE GRAN PERCENT AUTO 0.1 % (0.0-5.0); LYMPHOCYTES ABSOLUTE AUTO 1.64 10^3/uL (1.00-4.00); LYMPHOCYTES PERCENT AUTO 22.7 % (20.0-40.0); MEAN CORPUSCULAR HEMOGLOBIN 29.1 pg (27.0-31.0); MEAN CORPUSCULAR VOLUME 88.2 fL (82.0-92.0); MEAN PLATELET VOLUME 9.7 fL (7.4-10.4); MONOCYTES ABSOLUTE AUTO 0.26 10^3/uL (0.10-0.80); MONOCYTES PERCENT AUTO 3.6 % (2.0-8.0); NEUTROPHILS ABSOLUTE AUTO 5.21 10^3/uL (2.50-7.00); PLATELET COUNT,PLT 282 10^3/uL (150-400); RED CELL DISTRIBUTION WIDTH 13.2 % (11.5-14.5); WHITE BLOOD CELL COUNT,WBC 7.24 10^3/uL (5.00-10.00)
[2024-03-01] MEDS: Metoprolol Tartrate 5 MG/5 ML SDV IVPUSH ONE ×2 (00:12→01:14)
[2024-03-01 00:16] LABS: ALBUMIN 2.77 g/dL (3.40-5.00); ANION GAP 13.4 mmol/L (5-15); BILIRUBIN TOTAL 0.4 mg/dL (0.2-1.0); CALCIUM 8.1 mg/dL (8.7-10.3); CARBON DIOXIDE,CO2 28.2 mmol/L (21.0-32.0); CREATININE 0.81 mg/dL (0.51-1.17); EST CRCL DRUG DOSING (CG) 67.83 mL/min; POTASSIUM,K 3.6 mmol/L (3.5-5.1); PROTEIN TOTAL,TP 6.4 g/dL (6.4-8.2)
[2024-03-01 00:41] LABS: HCO3 ARTERIAL,POC 23.5 mmol/L (21-28); O2 SATURATION ARTERIAL,POC 93 % (94-98); PCO2 ARTERIAL,POC 33 mmHg (35-48); PH ARTERIAL,POC 7.47 pH (7.35-7.45); PO2 ARTERIAL,POC 60 mmHg (83-108)
[2024-03-01] MEDS: Sodium Chloride 0.9% 100 ML IV SCH (01:16)
[2024-03-01] MEDS: Iopamidol 755 Mg/ML 100 ML Bottle IV ONE (01:16)
[2024-03-01] MEDS: Albuterol/Ipratropium 3.0-0.5 MG/3 ML Neb Soln ONE (01:25)
[2024-03-01] MEDS: Ondansetron 4 MG/2 ML SDV IVPUSH PRN (01:34)
[2024-03-01] MEDS: Sodium Chloride 0.9% 1,000 ML IV ONE (01:55)
[2024-03-01] MEDS: Piperacillin/Tazobactam 4.5 GM in Sodium Chloride 0.9% 100 ML IV ONE (02:01)
[2024-03-01] MEDS: Norepinephrine Bit/0.9 % NaCl 4 MG in Premix Bag 1 BAG IV SCH (02:33)
[2024-03-01] MEDS: VANCOmycin 1.5 GM/300 ML 1.5 GM in Premix Bag 1 BAG IV ONE (02:41)
[2024-03-01] MEDS: Albuterol/Ipratropium 3.0-0.5 MG/3 ML Neb Soln NEB ONE (02:56)
[2024-03-01] MEDS: Sodium Chloride 0.9% 1,000 ML IV SCH (03:00)
[2024-03-01] MEDS ORDERED: Piperacillin/Tazobactam 4.5 GM in Sodium Chloride 0.9% 100 ML IV SCH (06:00)
[2024-03-01 06:01] VITALS: BP 120/64; PULSE 96
[2024-03-02] MEDS ORDERED: VANCOmycin 1.5 GM/300 ML 1.5 GM in Premix Bag 1 BAG IV SCH (03:00)
== END 2024-03-01 04:00 | DRG 947 ==
LOC: KA.MS 13:47
PROVIDERS: ADMIT Internal Medicine; ATTEND Internal Medicine
PROC: 4A033R1 Measurement of Arterial Saturation, Peripheral, Percutaneous Approach (ICD-10-PCS; principal; 2024-03-01)
PROC: 3E033XZ Introduction of Vasopressor into Peripheral Vein, Percutaneous Approach (ICD-10-PCS; 2024-03-01)
DX: R53.81 Other malaise (principal); A41.9 Sepsis, unspecified organism; R65.21 Severe sepsis with septic shock; I50.22 Chronic systolic (congestive) heart failure; I11.0 Hypertensive heart disease with heart failure; H54.7 Unspecified visual loss; E78.00 Pure hypercholesterolemia, unspecified; K22.70 Barrett's esophagus without dysplasia; E13.9 Other specified diabetes mellitus without complications; Z79.84 Long term (current) use of oral hypoglycemic drugs; Z79.82 Long term (current) use of aspirin; Z79.899 Other long term (current) drug therapy; Z79.4 Long term (current) use of insulin; Z86.0100 Personal history of colon polyps, unspecified; Z87.81 Personal history of (healed) traumatic fracture
CPT/HCPCS: 36415; 36600; 71275; 74177; 80053; 82803; 82947; 83605; 84484; 85025; 87040; A9270-GY; J2405; J2543; J3372; J3490; J7030; J7620-GY; Q3014; Q9967

== ENCOUNTER 2024-03-10 11:00 | Inpatient (IN) | payer MEDICARE ==
[2024-03-10] MEDS ORDERED: Bisacodyl 10 MG Supp RECTAL PRN (16:39)
[2024-03-10] MEDS ORDERED: Nitroglycerin 0.4 MG Tab.SL SL PRN (16:39)
[2024-03-10] MEDS ORDERED: Acetaminophen 325 MG Tab PO PRN (16:39)
[2024-03-10] MEDS ORDERED: Acetaminophen/oxyCODONE 325-5 MG Tab PO PRN (16:39)
[2024-03-10] MEDS ORDERED: Glucagon,Human Recombinant 1 MG Vial IM PRN (16:41)
[2024-03-10] MEDS ORDERED: 50% Dextrose in Water 50 ML Syringe IVPUSH PRN (16:41)
[2024-03-10] MEDS: Pantoprazole 40 MG Tab.CR PO SCH (17:47)
[2024-03-10] MEDS: Insulin Lispro 100 Unit/ML 3 ML KwikPen SUBCUT SCH (18:35)
[2024-03-10] MEDS: glipiZIDE 5 MG Tab.ER PO SCH (20:50)
[2024-03-10] MEDS: Sennosides/Docusate Sodium 50-8.6 MG Tab PO SCH (20:50)
[2024-03-10] MEDS: Insulin Glargine,Hum.Rec.Anlog 100 UNIT/ML 3 ML Pen SUBCUT SCH (20:55)
[2024-03-11] MEDS: Rosuvastatin 10 MG Tab PO SCH (08:03)
[2024-03-11] MEDS: Potassium Chloride 20 MEQ Tab.ER PO SCH (08:04)
[2024-03-11] MEDS: Aspirin 81 MG Tab.EC PO SCH (08:04)
[2024-03-11] MEDS: Furosemide 40 MG Tab PO SCH (08:04)
[2024-03-13] MEDS ORDERED: Glucagon,Human Recombinant 1 MG Vial IM PRN (20:05)
[2024-03-13] MEDS ORDERED: 50% Dextrose in Water 50 ML Syringe IVPUSH PRN (20:05)
[2024-03-13] MEDS: Insulin Lispro 100 Unit/ML 3 ML KwikPen SUBCUT ONE (20:11)
[2024-03-13] MEDS: Insulin Glargine,Hum.Rec.Anlog 100 UNIT/ML 3 ML Pen SUBCUT SCH (20:17)
[2024-03-14] MEDS: Insulin Lispro 100 Unit/ML 3 ML KwikPen SUBCUT SCH (08:03)
[2024-03-15] MEDS: Insulin Glargine,Hum.Rec.Anlog 100 UNIT/ML 3 ML Pen SUBCUT SCH (20:14)
[2024-03-16 10:40] LABS: ALBUMIN 2.65 g/dL (3.40-5.00); ANION GAP 8.4 mmol/L (5-15); BILIRUBIN TOTAL 0.5 mg/dL (0.2-1.0); C-REACTIVE PROTEIN 1.03 mg/dL (0.00-0.50); CALCIUM 8.3 mg/dL (8.7-10.3); CARBON DIOXIDE,CO2 33.8 mmol/L (21.0-32.0); CREATININE 0.72 mg/dL (0.51-1.17); EST CRCL DRUG DOSING (CG) 79.05 mL/min; POTASSIUM,K 3.2 mmol/L (3.5-5.1); PROTEIN TOTAL,TP 6.6 g/dL (6.4-8.2)
[2024-03-16 10:55] LABS: BASOPHILS ABSOLUTE AUTO 0.04 10^3/uL (0.00-0.10); BASOPHILS PERCENT AUTO 0.7 % (0.0-1.0); EOSINOPHILS ABSOLUTE AUTO 0.32 10^3/uL (0.10-0.30); EOSINOPHILS PERCENT AUTO 5.6 % (1.0-3.0); HEMATOCRIT 27.8 % (40.0-52.0); LYMPHOCYTES ABSOLUTE AUTO 1.37 10^3/uL (1.00-4.00); LYMPHOCYTES PERCENT AUTO 23.9 % (20.0-40.0); MEAN CORPUSCULAR HEMOGLOBIN 28.5 pg (27.0-31.0); MEAN CORPUSCULAR HGB CONC 32.4 g/dL (32.0-36.0); MEAN PLATELET VOLUME 9.5 fL (7.4-10.4); MONOCYTES ABSOLUTE AUTO 0.51 10^3/uL (0.10-0.80); MONOCYTES PERCENT AUTO 8.9 % (2.0-8.0); NEUTROPHILS ABSOLUTE AUTO 3.49 10^3/uL (2.50-7.00); NEUTROPHILS PERCENT AUTO 60.9 % (50.0-70.0); PLATELET COUNT,PLT 248 10^3/uL (150-400); RED BLOOD CELL COUNT 3.16 10^6/uL (4.50-6.00); WHITE BLOOD CELL COUNT,WBC 5.73 10^3/uL (5.00-10.00)
[2024-03-16] MEDS: Potassium Chloride 20 MEQ Tab.ER PO ONE (14:56)
[2024-03-16] MEDS: Insulin Glargine,Hum.Rec.Anlog 100 UNIT/ML 3 ML Pen SUBCUT SCH (20:15)
[2024-03-17 07:25] LABS: BASOPHILS ABSOLUTE AUTO 0.03 10^3/uL (0.00-0.10); BASOPHILS PERCENT AUTO 0.5 % (0.0-1.0); EOSINOPHILS ABSOLUTE AUTO 0.42 10^3/uL (0.10-0.30); EOSINOPHILS PERCENT AUTO 6.8 % (1.0-3.0); HEMOGLOBIN 9.2 g/dL (13.0-17.0); IMMATURE GRAN ABSOLUTE AUTO 0.01 10^3/uL (0.00-0.04); IMMATURE GRAN PERCENT AUTO 0.2 % (0.0-0.4); LYMPHOCYTES ABSOLUTE AUTO 1.36 10^3/uL (1.00-4.00); LYMPHOCYTES PERCENT AUTO 22.1 % (20.0-40.0); MEAN CORPUSCULAR HEMOGLOBIN 28.3 pg (27.0-31.0); MEAN CORPUSCULAR HGB CONC 31.7 g/dL (32.0-36.0); MEAN CORPUSCULAR VOLUME 89.2 fL (82.0-92.0); MEAN PLATELET VOLUME 9.4 fL (7.4-10.4); MONOCYTES ABSOLUTE AUTO 0.57 10^3/uL (0.10-0.80); MONOCYTES PERCENT AUTO 9.3 % (2.0-8.0); NEUTROPHILS ABSOLUTE AUTO 3.75 10^3/uL (2.50-7.00); NEUTROPHILS PERCENT AUTO 61.1 % (50.0-70.0); PLATELET COUNT,PLT 253 10^3/uL (150-400); RED BLOOD CELL COUNT 3.25 10^6/uL (4.50-6.00); WHITE BLOOD CELL COUNT,WBC 6.14 10^3/uL (5.00-10.00)
[2024-03-17 07:41] LABS: ANION GAP 9.2 mmol/L (5-15); CALCIUM 8.8 mg/dL (8.7-10.3); CARBON DIOXIDE,CO2 33.1 mmol/L (21.0-32.0); CREATININE 0.73 mg/dL (0.51-1.17); EST CRCL DRUG DOSING (CG) 77.97 mL/min; POTASSIUM,K 4.3 mmol/L (3.5-5.1)
[2024-03-18 07:28] LABS: BASOPHILS ABSOLUTE AUTO 0.03 10^3/uL (0.00-0.10); BASOPHILS PERCENT AUTO 0.6 % (0.0-1.0); EOSINOPHILS ABSOLUTE AUTO 0.32 10^3/uL (0.10-0.30); EOSINOPHILS PERCENT AUTO 5.9 % (1.0-3.0); HEMATOCRIT 28.3 % (40.0-52.0); LYMPHOCYTES ABSOLUTE AUTO 1.48 10^3/uL (1.00-4.00); LYMPHOCYTES PERCENT AUTO 27.3 % (20.0-40.0); MEAN CORPUSCULAR HEMOGLOBIN 28.2 pg (27.0-31.0); MEAN CORPUSCULAR HGB CONC 31.8 g/dL (32.0-36.0); MEAN CORPUSCULAR VOLUME 88.7 fL (82.0-92.0); MEAN PLATELET VOLUME 9.1 fL (7.4-10.4); MONOCYTES ABSOLUTE AUTO 0.56 10^3/uL (0.10-0.80); MONOCYTES PERCENT AUTO 10.3 % (2.0-8.0); NEUTROPHILS ABSOLUTE AUTO 3.04 10^3/uL (2.50-7.00); NEUTROPHILS PERCENT AUTO 55.9 % (50.0-70.0); PLATELET COUNT,PLT 263 10^3/uL (150-400); RED BLOOD CELL COUNT 3.19 10^6/uL (4.50-6.00); RED CELL DISTRIBUTION WIDTH 13.2 % (11.5-14.5); WHITE BLOOD CELL COUNT,WBC 5.43 10^3/uL (5.00-10.00)
[2024-03-20] MEDS: glipiZIDE 5 MG Tab.ER PO SCH (20:08)
[2024-03-20] MEDS ORDERED: glipiZIDE 5 MG Tab.ER PO SCH (21:00)
[2024-03-27 07:24] LABS: BASOPHILS ABSOLUTE AUTO 0.05 10^3/uL (0.00-0.10); EOSINOPHILS ABSOLUTE AUTO 0.34 10^3/uL (0.10-0.30); EOSINOPHILS PERCENT AUTO 6.6 % (1.0-3.0); HEMATOCRIT 28.9 % (40.0-52.0); HEMOGLOBIN 8.8 g/dL (13.0-17.0); IMMATURE GRAN ABSOLUTE AUTO 0.01 10^3/uL (0.00-0.04); IMMATURE GRAN PERCENT AUTO 0.2 % (0.0-0.4); LYMPHOCYTES ABSOLUTE AUTO 1.57 10^3/uL (1.00-4.00); LYMPHOCYTES PERCENT AUTO 30.3 % (20.0-40.0); MEAN CORPUSCULAR HEMOGLOBIN 26.4 pg (27.0-31.0); MEAN CORPUSCULAR HGB CONC 30.4 g/dL (32.0-36.0); MEAN CORPUSCULAR VOLUME 86.8 fL (82.0-92.0); MEAN PLATELET VOLUME 9.1 fL (7.4-10.4); MONOCYTES ABSOLUTE AUTO 0.71 10^3/uL (0.10-0.80); MONOCYTES PERCENT AUTO 13.7 % (2.0-8.0); NEUTROPHILS PERCENT AUTO 48.2 % (50.0-70.0); PLATELET COUNT,PLT 343 10^3/uL (150-400); RED BLOOD CELL COUNT 3.33 10^6/uL (4.50-6.00); RED CELL DISTRIBUTION WIDTH 13.3 % (11.5-14.5); WHITE BLOOD CELL COUNT,WBC 5.18 10^3/uL (5.00-10.00)
[2024-03-27 07:43] LABS: ALBUMIN 2.83 g/dL (3.40-5.00); ANION GAP 11.5 mmol/L (5-15); CARBON DIOXIDE,CO2 30.8 mmol/L (21.0-32.0); CREATININE 0.77 mg/dL (0.51-1.17); EST CRCL DRUG DOSING (CG) 73.92 mL/min; PHOSPHORUS 3.7 mg/dL (2.6-4.7); POTASSIUM,K 4.3 mmol/L (3.5-5.1)
[2024-03-27] MEDS: Lisinopril 20 MG Tab PO SCH (15:52)
[2024-04-09] MEDS: Insulin Glargine,Hum.Rec.Anlog 100 UNIT/ML 3 ML Pen SUBCUT SCH (20:41)
[2024-04-12 09:27] VITALS: BP 142/77; PULSE 77
== END 2024-04-12 15:29 | disposition home or self-care (01) | DRG 947 ==
LOC: KA.MS 15:04
PROVIDERS: ADMIT Internal Medicine; ATTEND Internal Medicine
DX: R53.81 Other malaise (principal); A41.9 Sepsis, unspecified organism; R65.21 Severe sepsis with septic shock; J18.9 Pneumonia, unspecified organism; K92.1 Melena; H54.7 Unspecified visual loss; E11.9 Type 2 diabetes mellitus without complications; D64.9 Anemia, unspecified; F15.90 Other stimulant use, unspecified, uncomplicated; I25.10 Atherosclerotic heart disease of native coronary artery without angina pectoris; E13.9 Other specified diabetes mellitus without complications; K27.9 Peptic ulcer, site unspecified, unspecified as acute or chronic, without hemorrhage or perforation; K22.70 Barrett's esophagus without dysplasia; Z95.1 Presence of aortocoronary bypass graft; Z79.82 Long term (current) use of aspirin; Z79.4 Long term (current) use of insulin; Z90.49 Acquired absence of other specified parts of digestive tract; Z98.890 Other specified postprocedural states; Z79.1 Long term (current) use of non-steroidal anti-inflammatories (NSAID); Z79.899 Other long term (current) drug therapy
CPT/HCPCS: 36415; 80048; 80053; 80069; 82947; 85025; 86140; 97110-GO; 97165-GO; 97535-GO; 99306-GT; 99307-GT; 99316-GT; A9270-GY; J1815-GY; Q3014

== ENCOUNTER 2024-05-11 08:57 | Inpatient (IN) | payer MEDICARE ==
[2024-05-11] MEDS ORDERED: Sodium Chloride 0.9% 10 ML Syringe FLUSH PRN (09:06)
[2024-05-11 09:44] LABS: BASOPHILS ABSOLUTE AUTO 0.02 10^3/uL (0.00-0.10); BASOPHILS PERCENT AUTO 0.2 % (0.0-1.0); EOSINOPHILS ABSOLUTE AUTO 0.04 10^3/uL (0.10-0.30); EOSINOPHILS PERCENT AUTO 0.4 % (1.0-3.0); HEMATOCRIT 37.6 % (40.0-52.0); HEMOGLOBIN 12.2 g/dL (13.0-17.0); IMMATURE GRAN ABSOLUTE AUTO 0.02 10^3/uL (0.00-0.04); IMMATURE GRAN PERCENT AUTO 0.2 % (0.0-0.4); LYMPHOCYTES ABSOLUTE AUTO 0.59 10^3/uL (1.00-4.00); LYMPHOCYTES PERCENT AUTO 5.4 % (20.0-40.0); MEAN CORPUSCULAR HEMOGLOBIN 26.9 pg (27.0-31.0); MEAN CORPUSCULAR HGB CONC 32.4 g/dL (32.0-36.0); MEAN PLATELET VOLUME 9.4 fL (7.4-10.4); MONOCYTES ABSOLUTE AUTO 0.62 10^3/uL (0.10-0.80); MONOCYTES PERCENT AUTO 5.6 % (2.0-8.0); NEUTROPHILS ABSOLUTE AUTO 9.73 10^3/uL (2.50-7.00); NEUTROPHILS PERCENT AUTO 88.2 % (50.0-70.0); PLATELET COUNT,PLT 257 10^3/uL (150-400); RED BLOOD CELL COUNT 4.53 10^6/uL (4.50-6.00); RED CELL DISTRIBUTION WIDTH 14.4 % (11.5-14.5); WHITE BLOOD CELL COUNT,WBC 11.02 10^3/uL (5.00-10.00)
[2024-05-11 09:47] LABS: ALANINE AMINOTRANSFERASE,ALT 13 U/L (14-63); ALBUMIN 2.94 g/dL (3.40-5.00); ALKALINE PHOSPHATASE 158 U/L (46-116); ANION GAP 12.3 mmol/L (5-15); ASPARTATE AMNIOTRANSFERASE,AST 12 U/L (15-37); BILIRUBIN TOTAL 0.4 mg/dL (0.2-1.0); BLOOD UREA NITROGEN,BUN 8 mg/dL (7-18); CARBON DIOXIDE,CO2 29.5 mmol/L (21.0-32.0); CHLORIDE,CL 102 mmol/L (98-107); GLUCOSE RANDOM 112 mg/dL (70-140); POTASSIUM,K 3.8 mmol/L (3.5-5.1); PROTEIN TOTAL,TP 7.4 g/dL (6.4-8.2); SODIUM,NA 140 mmol/L (136-145)
[2024-05-11 09:50] LABS: C-REACTIVE PROTEIN < 0.50 mg/dL (0.00-0.50); ESTIMATED GFR 91 mL/min (>=60)
[2024-05-11 09:59] LABS: B-TYPE NATRIURETIC PEPTIDE,BNP 320 pg/mL (0-100)
[2024-05-11] MEDS: Iopamidol 755 Mg/ML 100 ML Bottle IV ONE (11:13)
[2024-05-11] MEDS: Sodium Chloride 0.9% 100 ML IV SCH (11:14)
[2024-05-11] MEDS: Sodium Chloride 0.9% 50 ML IV SCH (11:14)
[2024-05-11] MEDS: cefTRIAXone 2 GM Vial IVPUSH ONE (12:07)
[2024-05-11] MEDS: Azithromycin 500 MG in Sodium Chloride 0.9% 250 ML IV SCH (12:50)
[2024-05-11] MEDS ORDERED: Ondansetron 4 MG/2 ML SDV IV PRN (16:56)
[2024-05-11] MEDS ORDERED: 50% Dextrose in Water 50 ML Syringe IVPUSH PRN (16:56)
[2024-05-11] MEDS ORDERED: Sennosides/Docusate Sodium 50-8.6 MG Tab PO PRN (16:56)
[2024-05-11] MEDS ORDERED: Acetaminophen 325 MG Tab PO PRN (16:56)
[2024-05-11] MEDS ORDERED: oxyCODONE 5 MG Tab PO PRN (16:56)
[2024-05-11] MEDS ORDERED: Ondansetron 4 MG Tab.DIS PO PRN (16:56)
[2024-05-11] MEDS ORDERED: Melatonin 3 MG Tab PO PRN (16:56)
[2024-05-11] MEDS: Sodium Chloride 0.9% 100 ML ONE (18:53)
[2024-05-11] MEDS: Tamsulosin 0.4 MG Cap.ER PO SCH (21:08)
[2024-05-11] MEDS: Metoprolol Tartrate 25 MG Tab PO SCH (21:08)
[2024-05-12] MEDS: Omeprazole 20 MG Cap.CR PO SCH (06:32)
[2024-05-12 07:26] LABS: BASOPHILS ABSOLUTE AUTO 0.03 10^3/uL (0.00-0.10); BASOPHILS PERCENT AUTO 0.3 % (0.0-1.0); EOSINOPHILS ABSOLUTE AUTO 0.25 10^3/uL (0.10-0.30); EOSINOPHILS PERCENT AUTO 2.8 % (1.0-3.0); HEMATOCRIT 32.4 % (40.0-52.0); HEMOGLOBIN 10.5 g/dL (13.0-17.0); IMMATURE GRAN ABSOLUTE AUTO 0.01 10^3/uL (0.00-0.04); IMMATURE GRAN PERCENT AUTO 0.1 % (0.0-0.4); LYMPHOCYTES ABSOLUTE AUTO 1.46 10^3/uL (1.00-4.00); LYMPHOCYTES PERCENT AUTO 16.2 % (20.0-40.0); MEAN CORPUSCULAR HEMOGLOBIN 27.2 pg (27.0-31.0); MEAN CORPUSCULAR HGB CONC 32.4 g/dL (32.0-36.0); MEAN CORPUSCULAR VOLUME 83.9 fL (82.0-92.0); MEAN PLATELET VOLUME 9.1 fL (7.4-10.4); MONOCYTES ABSOLUTE AUTO 0.56 10^3/uL (0.10-0.80); MONOCYTES PERCENT AUTO 6.2 % (2.0-8.0); NEUTROPHILS ABSOLUTE AUTO 6.69 10^3/uL (2.50-7.00); NEUTROPHILS PERCENT AUTO 74.4 % (50.0-70.0); PLATELET COUNT,PLT 204 10^3/uL (150-400); RED BLOOD CELL COUNT 3.86 10^6/uL (4.50-6.00); RED CELL DISTRIBUTION WIDTH 15.2 % (11.5-14.5)
[2024-05-12 07:41] LABS: ANION GAP 11.6 mmol/L (5-15); CALCIUM 8.5 mg/dL (8.7-10.3); CARBON DIOXIDE,CO2 28.4 mmol/L (21.0-32.0); CREATININE 0.72 mg/dL (0.51-1.17); EST CRCL DRUG DOSING (CG) 79.05 mL/min
[2024-05-12] MEDS: Enoxaparin 40 MG/0.4 ML Syringe SUBCUT SCH (07:49)
[2024-05-12] MEDS: Insulin Lispro 100 Unit/ML 3 ML KwikPen SUBCUT SCH (07:50)
[2024-05-12] MEDS: Clopidogrel 75 MG Tab PO SCH (07:51)
[2024-05-12] MEDS: Rosuvastatin 10 MG Tab PO SCH (07:51)
[2024-05-12] MEDS: Aspirin 81 MG Tab.EC PO SCH (07:51)
[2024-05-12] MEDS: Furosemide 40 MG/4 ML VIAL IVPUSH ONE ×2 (10:08→12:38)
[2024-05-12] MEDS ORDERED: cefTRIAXone 2 GM Vial IVPUSH SCH (17:00)
[2024-05-12] MEDS ORDERED: cefTRIAXone 2 GM in Sodium Chloride 0.9% 50 ML IV SCH (17:15)
[2024-05-12 22:07] LABS: BORDETELLA PARAPERT IS1001 Not Detected (Not Detected)
[2024-05-13 07:49] LABS: BASOPHILS ABSOLUTE AUTO 0.01 10^3/uL (0.00-0.10); BASOPHILS PERCENT AUTO 0.1 % (0.0-1.0); EOSINOPHILS ABSOLUTE AUTO 0.26 10^3/uL (0.10-0.30); EOSINOPHILS PERCENT AUTO 3.4 % (1.0-3.0); HEMOGLOBIN 10.9 g/dL (13.0-17.0); IMMATURE GRAN ABSOLUTE AUTO 0.01 10^3/uL (0.00-0.04); IMMATURE GRAN PERCENT AUTO 0.1 % (0.0-0.4); LYMPHOCYTES ABSOLUTE AUTO 1.28 10^3/uL (1.00-4.00); LYMPHOCYTES PERCENT AUTO 16.6 % (20.0-40.0); MEAN CORPUSCULAR HEMOGLOBIN 26.9 pg (27.0-31.0); MEAN CORPUSCULAR HGB CONC 32.1 g/dL (32.0-36.0); MEAN PLATELET VOLUME 9.3 fL (7.4-10.4); MONOCYTES ABSOLUTE AUTO 0.63 10^3/uL (0.10-0.80); MONOCYTES PERCENT AUTO 8.2 % (2.0-8.0); NEUTROPHILS ABSOLUTE AUTO 5.51 10^3/uL (2.50-7.00); NEUTROPHILS PERCENT AUTO 71.6 % (50.0-70.0); PLATELET COUNT,PLT 213 10^3/uL (150-400); RED BLOOD CELL COUNT 4.05 10^6/uL (4.50-6.00); RED CELL DISTRIBUTION WIDTH 14.7 % (11.5-14.5)
[2024-05-13 08:06] LABS: ALBUMIN 2.54 g/dL (3.40-5.00); ANION GAP 8.8 mmol/L (5-15); CALCIUM 8.6 mg/dL (8.7-10.3); CARBON DIOXIDE,CO2 30.8 mmol/L (21.0-32.0); CREATININE 0.78 mg/dL (0.51-1.17); EST CRCL DRUG DOSING (CG) 72.97 mL/min; PHOSPHORUS 3.1 mg/dL (2.6-4.7); POTASSIUM,K 4.6 mmol/L (3.5-5.1)
[2024-05-13] MEDS ORDERED: Glucagon,Human Recombinant 1 MG Vial IM PRN (09:36)
[2024-05-13] MEDS ORDERED: 50% Dextrose in Water 50 ML Syringe IVPUSH PRN (09:36)
[2024-05-13] MEDS: Furosemide 40 MG/4 ML VIAL IVPUSH ONE (09:51)
[2024-05-13] MEDS: Insulin Lispro 100 Unit/ML 3 ML KwikPen SUBCUT SCH (12:05)
[2024-05-13] MEDS ORDERED: Insulin Lispro 100 Unit/ML 3 ML KwikPen SUBCUT SCH (18:00)
[2024-05-13] MEDS: Insulin Glargine,Hum.Rec.Anlog 100 UNIT/ML 3 ML Pen SUBCUT SCH (21:27)
[2024-05-14 07:18] LABS: HEMATOCRIT 37.9 % (40.0-52.0); HEMOGLOBIN 12.3 g/dL (13.0-17.0); MEAN CORPUSCULAR HEMOGLOBIN 26.9 pg (27.0-31.0); MEAN CORPUSCULAR HGB CONC 32.5 g/dL (32.0-36.0); MEAN CORPUSCULAR VOLUME 82.9 fL (82.0-92.0); MEAN PLATELET VOLUME 9.6 fL (7.4-10.4); PLATELET COUNT,PLT 224 10^3/uL (150-400); RED BLOOD CELL COUNT 4.57 10^6/uL (4.50-6.00); RED CELL DISTRIBUTION WIDTH 14.7 % (11.5-14.5); WHITE BLOOD CELL COUNT,WBC 6.86 10^3/uL (5.00-10.00)
[2024-05-14 07:50] LABS: ALBUMIN 2.95 g/dL (3.40-5.00); ANION GAP 12.2 mmol/L (5-15); CALCIUM 9.1 mg/dL (8.7-10.3); CREATININE 0.73 mg/dL (0.51-1.17); EST CRCL DRUG DOSING (CG) 77.97 mL/min; PHOSPHORUS 3.3 mg/dL (2.6-4.7); POTASSIUM,K 4.2 mmol/L (3.5-5.1)
[2024-05-14 07:58] LABS: BAND ABSOLUTE MAN 0; BASOPHILS ABSOLUTE MAN 1; EOSINOPHILS ABSOLUTE MAN 0; LYMPHOCYTES ABSOLUTE MAN 18; MONOCYTES ABSOLUTE MAN 1
[2024-05-14 07:59] LABS: SEG NEUTROPHILS ABSOLUTE MAN 79
[2024-05-14] MEDS ORDERED: Insulin Glargine,Hum.Rec.Anlog 100 UNIT/ML 3 ML Pen SUBCUT SCH (09:00)
[2024-05-14] MEDS: Furosemide 40 MG Tab PO ONE (10:51)
[2024-05-14 14:38] VITALS: BP 159/93; PULSE 81
== END 2024-05-14 14:29 | disposition home health service (06) | DRG 193 ==
LOC: KA.ED 08:57 → KA.MS 13:40 → UNDOADMIN 13:40 → KA.MS 16:56 → UNDOADMIN 16:56 → UNDODISIN 05-14 14:29
PROVIDERS: ADMIT Hospitalist; ATTEND Internal Medicine
DX: J18.9 Pneumonia, unspecified organism (principal); J90 Pleural effusion, not elsewhere classified; I50.23 Acute on chronic systolic (congestive) heart failure; I50.9 Heart failure, unspecified; J81.0 Acute pulmonary edema; J96.01 Acute respiratory failure with hypoxia; F17.200 Nicotine dependence, unspecified, uncomplicated; K21.9 Gastro-esophageal reflux disease without esophagitis; E11.9 Type 2 diabetes mellitus without complications; N40.0 Benign prostatic hyperplasia without lower urinary tract symptoms; I25.10 Atherosclerotic heart disease of native coronary artery without angina pectoris; D72.829 Elevated white blood cell count, unspecified; H54.7 Unspecified visual loss; E78.00 Pure hypercholesterolemia, unspecified; F15.90 Other stimulant use, unspecified, uncomplicated; I11.0 Hypertensive heart disease with heart failure; Z87.81 Personal history of (healed) traumatic fracture; Z98.890 Other specified postprocedural states; Z95.1 Presence of aortocoronary bypass graft; Z79.82 Long term (current) use of aspirin; Z79.02 Long term (current) use of antithrombotics/antiplatelets; Z79.1 Long term (current) use of non-steroidal anti-inflammatories (NSAID); Z79.4 Long term (current) use of insulin; Z79.899 Other long term (current) drug therapy; Z90.49 Acquired absence of other specified parts of digestive tract
CPT/HCPCS: 36415; 71045; 71275; 80048; 80053; 80069; 82947; 83880; 84145; 84484; 85007; 85025; 85027; 85379; 85730; 86140; 87428-QW; 87486; 87581; 87633; 87798; 93005; 93010; 96365; 96375; 99223-GT; 99232-GT; 99233-GT; 99239-GT; 99284; 99285-25; A9270-GY; J0456; J0696; J1650; J1815-GY; J1940; J3490; Q3014; Q9967

== ENCOUNTER 2024-06-13 05:00 | Inpatient (IN) | payer OTHER ==
[2024-06-13] MEDS ORDERED: Sodium Chloride 0.9% 10 ML Syringe FLUSH PRN (05:02)
[2024-06-13] MEDS: Acetaminophen 500 MG Tab PO ONE (05:08)
[2024-06-13] MEDS: Lactated Ringers 1,000 ML IV SCH (05:09)
[2024-06-13 05:11] LABS: BASOPHILS ABSOLUTE AUTO 0.05 10^3/uL (0.00-0.10); BASOPHILS PERCENT AUTO 0.4 % (0.0-1.0); EOSINOPHILS ABSOLUTE AUTO 0.24 10^3/uL (0.10-0.30); HEMATOCRIT 42.7 % (40.0-52.0); HEMOGLOBIN 13.4 g/dL (13.0-17.0); IMMATURE GRAN ABSOLUTE AUTO 0.01 10^3/uL (0.00-0.04); IMMATURE GRAN PERCENT AUTO 0.1 % (0.0-0.4); LYMPHOCYTES ABSOLUTE AUTO 1.79 10^3/uL (1.00-4.00); LYMPHOCYTES PERCENT AUTO 14.6 % (20.0-40.0); MEAN CORPUSCULAR HEMOGLOBIN 27.3 pg (27.0-31.0); MEAN CORPUSCULAR HGB CONC 31.4 g/dL (32.0-36.0); MEAN CORPUSCULAR VOLUME 87.1 fL (82.0-92.0); MONOCYTES ABSOLUTE AUTO 0.71 10^3/uL (0.10-0.80); MONOCYTES PERCENT AUTO 5.8 % (2.0-8.0); NEUTROPHILS ABSOLUTE AUTO 9.48 10^3/uL (2.50-7.00); NEUTROPHILS PERCENT AUTO 77.1 % (50.0-70.0); PLATELET COUNT,PLT 218 10^3/uL (150-400); RED CELL DISTRIBUTION WIDTH 15.1 % (11.5-14.5); WHITE BLOOD CELL COUNT,WBC 12.28 10^3/uL (5.00-10.00)
[2024-06-13 05:12] LABS: ALANINE AMINOTRANSFERASE,ALT 13 U/L (14-63); ALBUMIN 3.21 g/dL (3.40-5.00); ALKALINE PHOSPHATASE 117 U/L (46-116); ASPARTATE AMNIOTRANSFERASE,AST 27 U/L (15-37); BILIRUBIN TOTAL 0.6 mg/dL (0.2-1.0); BLOOD UREA NITROGEN,BUN 13 mg/dL (7-18); CALCIUM 9.1 mg/dL (8.7-10.3); CARBON DIOXIDE,CO2 26.5 mmol/L (21.0-32.0); CHLORIDE,CL 101 mmol/L (98-107); ESTIMATED GFR 87 mL/min (>=60); GLUCOSE RANDOM 217 mg/dL (70-140); POTASSIUM,K 3.5 mmol/L (3.5-5.1); PROTEIN TOTAL,TP 7.5 g/dL (6.4-8.2); SODIUM,NA 141 mmol/L (136-145)
[2024-06-13 05:14] LABS: LACTIC ACID 6.8 mmol/L (0.4-2.0)
[2024-06-13] MEDS: Albuterol/Ipratropium 3.0-0.5 MG/3 ML Neb Soln NEB ONE (05:39)
[2024-06-13 05:45] LABS: INFLUENZA A NAA NEGATIVE (NEGATIVE); INFLUENZA B NAA NEGATIVE (NEGATIVE)
[2024-06-13 05:46] LABS: CORONAVIRUS COVID-19 NAA NEGATIVE (NEGATIVE)
[2024-06-13] MEDS: Cefepime 2 GM Vial IVPUSH ONE (05:46)
[2024-06-13 07:57] LABS: APPEARANCE,URINE CLEAR (CLEAR); BILIRUBIN,URINE NEGATIVE (NEGATIVE); COLOR,URINE DARK YELLOW (YELLOW); GLUCOSE,URINE 100 mg/dL (NEGATIVE); KETONES,URINE TRACE mg/dL (NEGATIVE); LEUKOCYTE ESTERASE,URINE NEGATIVE (NEGATIVE); NITRITE,URINE NEGATIVE (NEGATIVE); OCCULT BLOOD,URINE NEGATIVE (NEGATIVE); PH,URINE 5.5 (5.0-9.0); PROTEIN,URINE TRACE mg/dL (NEGATIVE); UROBILINOGEN,URINE 0.2 E.U./dL (0.2-1.0)
[2024-06-13 08:02] LABS: BACTERIA,URINE OCCASIONAL /HPF (NONE TO FEW); EPITHELIAL CELLS,URINE RARE /LPF; RBC,URINE 0-5 /HPF (0-5); WBC,URINE 0-5 /HPF (0-5)
[2024-06-13 08:03] LABS: OTHER CRYSTALS,URINE FEW /HPF
[2024-06-13 08:29] LABS: LACTIC ACID 1.7 mmol/L (0.4-2.0)
[2024-06-13] MEDS ORDERED: Polyethylene Glycol 3350 Powder 17 GM Packet PO PRN (09:39)
[2024-06-13] MEDS ORDERED: Acetaminophen 325 MG Tab PO PRN (09:39)
[2024-06-13] MEDS ORDERED: Ondansetron 4 MG/2 ML SDV IV PRN (09:39)
[2024-06-13] MEDS ORDERED: 50% Dextrose in Water 50 ML Syringe IVPUSH PRN (09:45)
[2024-06-13] MEDS ORDERED: Glucagon,Human Recombinant 1 MG Vial IM PRN (09:45)
[2024-06-13] MEDS: Furosemide 40 MG/4 ML VIAL IVPUSH SCH (10:40)
[2024-06-13] MEDS: Clopidogrel 75 MG Tab PO SCH (10:40)
[2024-06-13] MEDS: Rosuvastatin 10 MG Tab PO SCH (10:40)
[2024-06-13] MEDS: Aspirin 81 MG Tab.EC PO SCH (10:40)
[2024-06-13] MEDS: Levofloxacin/Dextrose 5%-Water 750 MG in Premix Bag 1 BAG IV SCH (10:41)
[2024-06-13] MEDS: Insulin Lispro 100 Unit/ML 3 ML KwikPen SUBCUT SCH (10:42)
[2024-06-13] MEDS: Omeprazole 20 MG Cap.CR PO SCH (10:45)
[2024-06-13] MEDS: glipiZIDE 5 MG Tab.ER PO SCH (10:46)
[2024-06-13] MEDS: Sodium Chloride 0.9% 50 ML IV SCH (10:48)
[2024-06-13] MEDS: Metoprolol Tartrate 25 MG Tab PO SCH (10:49)
[2024-06-13] MEDS: Albuterol 0.083% 2.5 MG/3 ML Neb Soln NEB PRN (19:24)
[2024-06-13] MEDS: Insulin Glargine,Human Rec. Analog 100 Units/ML 3 ML Pen SUBCUT SCH (20:16)
[2024-06-13] MEDS: Tamsulosin 0.4 MG Cap.ER PO SCH (20:18)
[2024-06-14 07:34] LABS: BASOPHILS ABSOLUTE AUTO 0.06 10^3/uL (0.00-0.10); BASOPHILS PERCENT AUTO 0.5 % (0.0-1.0); EOSINOPHILS ABSOLUTE AUTO 0.13 10^3/uL (0.10-0.30); EOSINOPHILS PERCENT AUTO 1.1 % (1.0-3.0); HEMATOCRIT 34.1 % (40.0-52.0); HEMOGLOBIN 10.8 g/dL (13.0-17.0); IMMATURE GRAN ABSOLUTE AUTO 0.02 10^3/uL (0.00-0.04); IMMATURE GRAN PERCENT AUTO 0.2 % (0.0-0.4); LYMPHOCYTES ABSOLUTE AUTO 1.55 10^3/uL (1.00-4.00); LYMPHOCYTES PERCENT AUTO 12.7 % (20.0-40.0); MEAN CORPUSCULAR HEMOGLOBIN 26.7 pg (27.0-31.0); MEAN CORPUSCULAR HGB CONC 31.7 g/dL (32.0-36.0); MEAN CORPUSCULAR VOLUME 84.2 fL (82.0-92.0); MEAN PLATELET VOLUME 9.4 fL (7.4-10.4); MONOCYTES ABSOLUTE AUTO 0.69 10^3/uL (0.10-0.80); MONOCYTES PERCENT AUTO 5.6 % (2.0-8.0); NEUTROPHILS ABSOLUTE AUTO 9.77 10^3/uL (2.50-7.00); NEUTROPHILS PERCENT AUTO 79.9 % (50.0-70.0); PLATELET COUNT,PLT 180 10^3/uL (150-400); RED BLOOD CELL COUNT 4.05 10^6/uL (4.50-6.00); RED CELL DISTRIBUTION WIDTH 15.3 % (11.5-14.5); WHITE BLOOD CELL COUNT,WBC 12.22 10^3/uL (5.00-10.00)
[2024-06-14 07:43] LABS: ALBUMIN 2.66 g/dL (3.40-5.00); ANION GAP 8.3 mmol/L (5-15); BILIRUBIN TOTAL 0.6 mg/dL (0.2-1.0); CALCIUM 8.7 mg/dL (8.7-10.3); CARBON DIOXIDE,CO2 34.9 mmol/L (21.0-32.0); CREATININE 0.91 mg/dL (0.51-1.17); EST CRCL DRUG DOSING (CG) 64.73 mL/min; MAGNESIUM 1.5 mg/dL (1.8-2.4); POTASSIUM,K 3.2 mmol/L (3.5-5.1); PROTEIN TOTAL,TP 6.4 g/dL (6.4-8.2)
[2024-06-14] MEDS: Potassium Chloride 10 MEQ Tab.ER PO SCH (12:22)
[2024-06-14] MEDS: Furosemide 40 MG Tab PO SCH (14:21)
[2024-06-15 07:28] LABS: BASOPHILS ABSOLUTE AUTO 0.04 10^3/uL (0.00-0.10); BASOPHILS PERCENT AUTO 0.5 % (0.0-1.0); EOSINOPHILS ABSOLUTE AUTO 0.24 10^3/uL (0.10-0.30); HEMATOCRIT 33.4 % (40.0-52.0); HEMOGLOBIN 10.9 g/dL (13.0-17.0); IMMATURE GRAN ABSOLUTE AUTO 0.01 10^3/uL (0.00-0.04); IMMATURE GRAN PERCENT AUTO 0.1 % (0.0-0.4); MEAN CORPUSCULAR HEMOGLOBIN 27.3 pg (27.0-31.0); MEAN CORPUSCULAR HGB CONC 32.6 g/dL (32.0-36.0); MEAN CORPUSCULAR VOLUME 83.5 fL (82.0-92.0); MEAN PLATELET VOLUME 9.8 fL (7.4-10.4); MONOCYTES ABSOLUTE AUTO 0.62 10^3/uL (0.10-0.80); MONOCYTES PERCENT AUTO 7.8 % (2.0-8.0); NEUTROPHILS PERCENT AUTO 69.6 % (50.0-70.0); PLATELET COUNT,PLT 184 10^3/uL (150-400); WHITE BLOOD CELL COUNT,WBC 7.91 10^3/uL (5.00-10.00)
[2024-06-15 07:53] LABS: ALBUMIN 2.73 g/dL (3.40-5.00); ANION GAP 8.5 mmol/L (5-15); BILIRUBIN TOTAL 0.4 mg/dL (0.2-1.0); CALCIUM 8.7 mg/dL (8.7-10.3); CARBON DIOXIDE,CO2 33.2 mmol/L (21.0-32.0); CREATININE 0.82 mg/dL (0.51-1.17); EST CRCL DRUG DOSING (CG) 71.83 mL/min; POTASSIUM,K 3.7 mmol/L (3.5-5.1); PROTEIN TOTAL,TP 6.5 g/dL (6.4-8.2)
[2024-06-15] MEDS: Furosemide 40 MG Tab PO SCH (08:17)
[2024-06-15] MEDS: Levofloxacin 500 MG Tab PO ONE (11:37)
[2024-06-15 12:00] VITALS: BP 150/82; PULSE 71
== END 2024-06-15 12:40 | disposition home or self-care (01) | DRG 871 ==
LOC: KA.ED 05:00 → MERGE 06:05 → KA.MS 06:05
PROVIDERS: ADMIT Physician Assistant Medical; ATTEND Internal Medicine
DX: A41.9 Sepsis, unspecified organism (principal); I50.33 Acute on chronic diastolic (congestive) heart failure; J18.9 Pneumonia, unspecified organism; E87.20 Acidosis, unspecified; J96.01 Acute respiratory failure with hypoxia; K86.1 Other chronic pancreatitis; Z95.1 Presence of aortocoronary bypass graft; E46 Unspecified protein-calorie malnutrition; R65.20 Severe sepsis without septic shock; I11.0 Hypertensive heart disease with heart failure; K21.9 Gastro-esophageal reflux disease without esophagitis; N40.0 Benign prostatic hyperplasia without lower urinary tract symptoms; E86.0 Dehydration; I25.10 Atherosclerotic heart disease of native coronary artery without angina pectoris; E11.65 Type 2 diabetes mellitus with hyperglycemia; E78.00 Pure hypercholesterolemia, unspecified; E11.40 Type 2 diabetes mellitus with diabetic neuropathy, unspecified; Z68.25 Body mass index [BMI] 25.0-25.9, adult; Z90.49 Acquired absence of other specified parts of digestive tract; Z79.899 Other long term (current) drug therapy; Z79.4 Long term (current) use of insulin; Z95.5 Presence of coronary angioplasty implant and graft
CPT/HCPCS: 0240U; 36415; 71045; 80053; 81001; 82947; 83605; 83735; 83880; 85025; 87040; 93005; 96360; 99285-25; A9270-GY; J0692; J1815-GY; J1940; J1956; J3490; J7120; Q3014

== ENCOUNTER 2024-09-09 09:10 | Emergency (ER) | payer MEDICARE ==
[2024-09-09] MEDS ORDERED: Sodium Chloride 0.9% 10 ML Syringe FLUSH PRN (09:28)
[2024-09-09 09:41] LABS: BASOPHILS ABSOLUTE AUTO 0.05 10^3/uL (0.00-0.10); BASOPHILS PERCENT AUTO 0.9 % (0.0-1.0); EOSINOPHILS ABSOLUTE AUTO 0.26 10^3/uL (0.10-0.30); EOSINOPHILS PERCENT AUTO 4.9 % (1.0-3.0); HEMOGLOBIN 11.9 g/dL (13.0-17.0); LYMPHOCYTES PERCENT AUTO 35.9 % (20.0-40.0); MEAN CORPUSCULAR HEMOGLOBIN 27.4 pg (27.0-31.0); MEAN CORPUSCULAR HGB CONC 33.1 g/dL (32.0-36.0); MEAN CORPUSCULAR VOLUME 82.9 fL (82.0-92.0); MEAN PLATELET VOLUME 9.4 fL (7.4-10.4); MONOCYTES ABSOLUTE AUTO 0.44 10^3/uL (0.10-0.80); MONOCYTES PERCENT AUTO 8.3 % (2.0-8.0); NEUTROPHILS ABSOLUTE AUTO 2.64 10^3/uL (2.50-7.00); PLATELET COUNT,PLT 251 10^3/uL (150-400); RED BLOOD CELL COUNT 4.34 10^6/uL (4.50-6.00); RED CELL DISTRIBUTION WIDTH 13.1 % (11.5-14.5); WHITE BLOOD CELL COUNT,WBC 5.29 10^3/uL (5.00-10.00)
[2024-09-09 10:18] LABS: ALBUMIN 2.62 g/dL (3.40-5.00); ANION GAP 12.3 mmol/L (5-15); BILIRUBIN TOTAL 0.4 mg/dL (0.2-1.0); CALCIUM 8.8 mg/dL (8.7-10.3); CREATININE 0.94 mg/dL (0.51-1.17); EST CRCL DRUG DOSING (CG) 58.45 mL/min; POTASSIUM,K 3.3 mmol/L (3.5-5.1); PROTEIN TOTAL,TP 6.8 g/dL (6.4-8.2)
[2024-09-09] MEDS: Sodium Chloride 0.9% 1,000 ML IV ONE (10:34)
[2024-09-09 11:21] LABS: APPEARANCE,URINE CLEAR (CLEAR); BILIRUBIN,URINE NEGATIVE (NEGATIVE); COLOR,URINE YELLOW (YELLOW); GLUCOSE,URINE NEGATIVE (NEGATIVE); KETONES,URINE NEGATIVE (NEGATIVE); LEUKOCYTE ESTERASE,URINE NEGATIVE (NEGATIVE); NITRITE,URINE NEGATIVE (NEGATIVE); OCCULT BLOOD,URINE NEGATIVE (NEGATIVE); PROTEIN,URINE NEGATIVE (NEGATIVE); UROBILINOGEN,URINE 0.2 E.U./dL (0.2-1.0)
[2024-09-09 11:32] LABS: BACTERIA,URINE OCCASIONAL /HPF (NONE TO FEW); EPITHELIAL CELLS,URINE RARE /LPF; RBC,URINE 0-5 /HPF (0-5); WBC,URINE 0-5 /HPF (0-5)
[2024-09-09 15:55] VITALS: BP 125/59; PULSE 63
== END 2024-09-09 11:48 | disposition home or self-care (01) ==
LOC: KA.ED 09:10
DX: E86.0 Dehydration (principal); E87.6 Hypokalemia; E87.0 Hyperosmolality and hypernatremia; I11.0 Hypertensive heart disease with heart failure; I50.9 Heart failure, unspecified; E78.00 Pure hypercholesterolemia, unspecified; Z95.1 Presence of aortocoronary bypass graft; E11.9 Type 2 diabetes mellitus without complications; F17.210 Nicotine dependence, cigarettes, uncomplicated; Z79.82 Long term (current) use of aspirin; Z79.899 Other long term (current) drug therapy; Z79.4 Long term (current) use of insulin; Z79.84 Long term (current) use of oral hypoglycemic drugs
CPT/HCPCS: 36415; 80053; 81001; 83880; 85025; 93005; 93010; 96360; 99284; 99285-25; J7030